=== PATIENT | female | born 1950 | race Hispanic/Latino ===

== ENCOUNTER 2017-10-30 12:02 | Inpatient (IN) | payer MEDICARE ==
[2017-10-30] MEDS ORDERED: Sodium Chloride 0.9% 1,000 ML IV ONE (12:59)
[2017-10-30] MEDS ORDERED: Sodium Chloride 0.9% 250 ML IV ONE (13:10)
[2017-10-30 13:18] LABS: BASO # 0.1 K/uL (0.0-0.2); BASO % 0.7 % (0.0-2.0); EOS # 0.1 K/uL (0.0-0.7); EOS % 0.8 % (0.0-4.0); HEMOGLOBIN 11.8 g/dL (11.0-16.0); LYMPH # 1.5 K/uL (1.0-4.3); LYMPH % 12.2 % (20.0-40.0); MEAN CELL VOLUME 89.5 fL (81.0-99.0); MEAN CORPUSCULAR HEMOGLOBIN 29.8 pg (27.0-31.0); MEAN CORPUSCULAR HGB CONC 33.3 g/dL (33.0-37.0); MEAN PLATELET VOLUME 8.9 fL (7.2-11.7); MONO # 0.6 K/uL (0.0-0.8); MONO % 5.4 % (0.0-10.0); NEUT # 9.7 K/uL (1.8-7.0); NEUT % 80.9 % (50.0-75.0); RBC 3.97 Mil/uL (3.80-5.20); RED CELL DISTRIBUTION WIDTH 12.8 % (11.5-14.5)
[2017-10-30 13:31] LABS: ALBUMIN 4.1 g/dL (3.5-5.0); CALCIUM 9.1 mg/dl (8.6-10.4)
[2017-10-30] MEDS ORDERED: Iodixanol 320 MG/ML 100 ML BOTTLE IV ONE (13:44)
[2017-10-30 13:47] LABS: SQUAMOUS EPITHIAL 4 /hpf (0-5); URINE BACTERIA RARE (<OCC); URINE BILIRUBIN NEGATIVE (NEGATIVE); URINE BLOOD 3+ (NEGATIVE); URINE COLOR Yellow (YELLOW); URINE GLUCOSE (UA) NORMAL (Normal); URINE PROTEIN NEGATIVE (NEGATIVE); URINE UROBILINOGEN NORMAL mg/dL (0.2-1.0)
[2017-10-30 14:04] LABS: URINE LEUKOCYTE ESTERASE TRACE Leu/uL (Negative)
[2017-10-30 14:05] LABS: URINE CLARITY SLHAZY (Clear)
--- NOTE | 2017-10-30 15:15 | CT ---
PROCEDURE: CT Abdomen and Pelvis without intravenous contrast HISTORY: right-sided abdominal pain COMPARISON: None. TECHNIQUE: Helical CT of the abdomen and pelvis was performed without oral or intravenous contrast as per referring physician request. Contrast Dose: None Radiation dose: Total exam DLP = 1210.41 mGy-cm. This CT exam was performed using one or more of the following dose reduction techniques: Automated exposure control, adjustment of the mA and/or kV according to patient size, and/or use of iterative reconstruction technique. FINDINGS: LOWER THORAX: Unremarkable. LIVER: Unremarkable. No gross lesion or ductal dilatation. 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 Sludge is likely within the gallbladder lumen. Chronic cholecystitis is not excluded. Clinically correlate further. PANCREAS: Unremarkable. No gross lesion or ductal dilatation. SPLEEN: Unremarkable. ADRENALS: Unremarkable. No mass. KIDNEYS AND URETERS: A 5.7 mm calculus obstructing distal right ureter causing [id number] right hydroureteronephrosis. No additional radiodense urolithiasis identified at the right side although an intrarenal calculus identified measuring 6 mm at the lower pole left kidney without obstructive uropathy. Urinary bladder is mildly distended. VASCULATURE: Unremarkable. No aortic aneurysm. BOWEL: Unremarkable. No obstruction. No gross mural thickening. APPENDIX: Unremarkable. Normal appendix. PERITONEUM: Unremarkable. No free fluid. No free air. LYMPH NODES: Unremarkable. No enlarged lymph nodes. BLADDER: Unremarkable. REPRODUCTIVE: Unremarkable. BONES: No acute fracture. OTHER FINDINGS: Inferior left rectus abdominus muscle lipoma identified, 11.8 cm. 4.1 cm subcutaneous medial right buttocks mass partially calcified suggests of a sebaceous cyst. IMPRESSION: 1. 5.7 mm calculus obstructs the distal right ureter several cm proximal right uterus with junction causing [id number] right hydroureteronephrosis. Intrarenal calculus lower pole left kidney, nonobstructive. 2. Gross abnormal gallbladder including marked mural thickening with the wall partially calcified and sludge in the lumen. This is likely developing partial in gallbladder. Chronic cholecystitis is not excluded nor is underlying neoplasm. Clinical follow-up advised.
--- NOTE | 2017-10-30 15:58 | C.PDOC ---
History Of Present Illness 67 y/o female presents to ED with complaints of urinary frequency and right sided abdominal pain "for couple of days". Patient admits to decreased po intake and denies fever, chills, hematuria, back pain, dysuria or any other complaints at this time. Chief Complaint (Nursing): Abdominal Pain History Per: Patient History/Exam Limitations: no limitations Onset/Duration Of Symptoms: Days Current Symptoms Are (Timing): Still Present Past Medical History Reviewed: Historical Data, Nursing Documentation, Vital Signs Vital Signs: Last Vital Signs Temp 98 F 10/30/17 16:46 Pulse 82 10/30/17 16:46 Resp 18 10/30/17 16:46 BP 184/77 H 10/30/17 16:46 Pulse Ox 99 10/30/17 16:46 - Medical History PMH: Diabetes, HTN Surgical History: No Surg Hx Family History: States: No Known Family Hx - Social History Hx Tobacco Use: No Hx Alcohol Use: No Hx Substance Use: No - Immunization History Hx Tetanus Toxoid Vaccination: No Hx Influenza Vaccination: Yes Hx Pneumococcal Vaccination: No Review Of Systems Constitutional: Negative for: Fever, Chills Gastrointestinal: Positive for: Abdominal Pain. Negative for: Nausea, Vomiting Genitourinary: Positive for: Frequency. Negative for: Dysuria, Hematuria, Vaginal Discharge Skin: Negative for: Rash Physical Exam - Physical Exam Appears: Non-toxic, No Acute Distress Skin: Warm, Dry, No Rash Head: Atraumatic, Normacephalic Oral Mucosa: Dry Neck: Normal ROM, Supple Cardiovascular: Rhythm Regular Respiratory: Normal Breath Sounds, No Rales, No Rhonchi, No Wheezing Gastrointestinal/Abdominal: Soft, Tenderness (Right side Upper >Lower), No Guarding, No Rebound, Other (No flank pain) Back: No CVA Tenderness Extremity: Normal ROM, Capillary Refill (<2 seconds) Neurological/Psych: Oriented x3, Normal Speech, Normal Cognition ED Course And Treatment - Laboratory Results Result Diagrams: 10/30/17 13:08 10/30/17 13:08 O2 Sat by Pulse Oximetry: 95 (RA) Pulse Ox Interpretation: Normal Disposition - Disposition Disposition Time: 16:10 Condition: STABLE - Clinical Impression Clinical Impression: Abdominal pain, Kidney stone, Gallbladder stone with nonacute cholecystitis, Acute renal failure - Scribe Statement The provider has reviewed the documentation as recorded by the Scribfara Raygoza
[2017-10-30] MEDS ORDERED: Ciprofloxacin 400mg/200ml D5W 400 MG/200 ML BAG IVPB STA (16:43)
[2017-10-30] MEDS ORDERED: Morphine 4 MG/ML VIAL IV STA (16:43)
[2017-10-30] MEDS ORDERED: metroNIDAZOLE IV 500 mg/100 ml 500 MG/100 ML BAG IVPB STA (16:43)
--- NOTE | 2017-10-30 17:00 | US ---
HISTORY: RUQ tenderness COMPARISON: None. TECHNIQUE: Sonographic evaluation of the right upper quadrant of the abdomen. FINDINGS: LIVER: Measures 22.0 cm in length. Increased echogenicity of the liver parenchyma suggests hepatic steatosis diffusely without focal mass evident grossly. No intrahepatic bile duct dilatation. GALLBLADDER: Extensive cholelithiasis identified layering in the dependent gallbladder with sludge. The wall appears thickened to approximately 6.8 mm and although there is no pericholecystic fluid collection related, acute or subacute cholecystitis is in question a further clinical correlation is advised. Further, there is a positive sonographic Portillo sign. COMMON BILE DUCT: Measures 9.7 mm. No choledocholithiasis. PANCREAS: The tail of the pancreas is obscured by overlying bowel gas with remainder unremarkable. RIGHT KIDNEY: Measures 14.3 cm in length. Normal echogenicity. No calculus, mass, or hydronephrosis. AORTA: No aneurysmal dilatation. IVC: Unremarkable. OTHER FINDINGS: None . IMPRESSION: Abnormal gallbladder findings including cholelithiasis and mural thickening as well as sonographic Portillo sign are highly suspicious for acute cholecystitis. Clinically correlate. CBD caliber of 9.7 mm also significantly abnormal but without definite choledocholithiasis is evident. Clinically correlate further. Consider follow-up MRCP exam. Hepatic steatosis. Partial imaging of the pancreas.
[2017-10-30] MEDS ORDERED: Morphine 4 MG/ML VIAL ONE (17:12)
[2017-10-30] MEDS ORDERED: Ciprofloxacin 400mg/200ml D5W 400 MG/200 ML BAG IVPB ONE (17:13)
[2017-10-30] MEDS ORDERED: metroNIDAZOLE IV 500 mg/100 ml 500 MG/100 ML BAG ONE (17:14)
[2017-10-30] MEDS ORDERED: Sodium Chloride 0.45% 1,000 ML IV ONE (17:21)
--- NOTE | 2017-10-30 17:23 | CP.PCM.HP ---
History of Present Illness - History of Present Illness History of Present Illness: c/o abd pain for 4 days duration HPI: 4 days ago c/o diff in urination and buring and pain. Called crayon sawyer and she started on cipro 500mg daily for 5 doses. But she got more pain in the abdomen and poor appetite and not feeling well. with worsening pain she came to ED. In the ED eval done and showing gall bladder stone and positive lindsey sign. also has renal stone with hydro. Present on Admission - Present on Admission Any Indicators Present on Admission: No History of DVT/PE: No History of Uncontrolled Diabetes: No Urinary Catheter: No Decubitus Ulcer Present: No Review of Systems - Review of Systems Systems not reviewed;Unavailable: Acuity of Condition - Constitutional Constitutional: As Per HPI - EENT Eyes: As Per HPI Nose/Mouth/Throat: As Per HPI - Respiratory Respiratory: As Per HPI - Gastrointestinal Gastrointestinal: Dyspepsia, Nausea Additional comments: abdominal pain Past Patient History - Infectious Disease Hx of Infectious Diseases: None - Past Social History Smoking Status: Never Smoked - CARDIAC Hx Hypertension: Yes - ENDOCRINE/METABOLIC Hx Diabetes Mellitus Type 2: Yes - GENITOURINARY/GYNECOLOGICAL Other/Comment: Hx of gallstones - PSYCHIATRIC Hx Substance Use: No - SURGICAL HISTORY Hx Surgeries: No - ANESTHESIA Hx Anesthesia: No Meds Allergies/Adverse Reactions: Allergies Allergy/AdvReac Type Severity Reaction Status Date / Time Penicillins Allergy Severe RASH Verified 10/30/17 12:09 Physical Exam - Constitutional Appears: Well - Head Exam Head Exam: ATRAUMATIC - ENT Exam ENT Exam: Mucous Membranes Dry - Respiratory Exam Respiratory Exam: NORMAL BREATHING PATTERN - Cardiovascular Exam Cardiovascular Exam: REGULAR RHYTHM - GI/Abdominal Exam GI & Abdominal Exam: Normal Bowel Sounds, Tenderness Additional comments: rt UQ pain and tenderness noted - Extremities Exam Extremities exam: Positive for: normal inspection - Back Exam Back exam: NORMAL INSPECTION - Neurological Exam Neurological exam: Normal Gait Results - Vital Signs Recent Vital Signs: Last Vital Signs Temp 98 F 10/30/17 16:46 Pulse 82 10/30/17 16:46 Resp 18 10/30/17 16:46 BP 184/77 H 10/30/17 16:46 Pulse Ox 99 10/30/17 16:46 - Labs Result Diagrams: 10/31/17 07:01 10/30/17 13:08 Labs: Laboratory Results - last 24 hr 10/30/17 10/30/17 10/30/17 13:08 13:08 13:08 WBC 12.0 H RBC 3.97 Hgb 11.8 Hct 35.6 MCV 89.5 MCH 29.8 MCHC 33.3 RDW 12.8 Plt Count 318 MPV 8.9 Neut % (Auto) 80.9 H Lymph % (Auto) 12.2 L [place] % (Auto) 5.4 Eos % (Auto) 0.8 Baso % (Auto) 0.7 Neut # (Auto) 9.7 H Lymph # (Auto) 1.5 [place] # (Auto) 0.6 Eos # (Auto) 0.1 Baso # (Auto) 0.1 Sodium 139 Potassium 4.6 Chloride 98 Carbon Dioxide 23 Anion Gap 22 H BUN 31 H Creatinine 2.1 H Est GFR ( Amer) 28 Est GFR (Non-Af Amer) 23 Random Glucose 183 H Calcium 9.1 Total Bilirubin 1.2 AST 27 ALT 27 Alkaline Phosphatase 104 Total Protein 8.1 Albumin 4.1 Globulin 3.9 Albumin/Globulin Ratio 1.0 Lipase 50 Urine Color Yellow Urine Clarity [place] Urine pH 5.0 Ur Specific [place] 1.015 Urine Protein Negative Urine Glucose (UA) Normal Urine Ketones Trace Urine Blood 3+ H Urine Nitrate Negative Urine Bilirubin Negative Urine Urobilinogen Normal Ur Leukocyte Esterase Trace Urine WBC (Auto) 10 H Urine RBC (Auto) 117 H Ur Squamous Epith Cells 4 Urine Bacteria Rare Assessment & Plan (1) Acute cholecystitis Assessment and Plan: acute cholecystitis for surgical consult possible cholecystectomy plan Status: Acute (2) Acute renal failure Status: Acute (3) Kidney stone Assessment and Plan: obstructive renal stone and may need intervention - urology eval Status: Acute
[2017-10-30] MEDS ORDERED: Ciprofloxacin 200mg/100ml D5W 100 ML IVPB SCH (17:30)
--- NOTE | 2017-10-30 18:38 | CP.PCM.CON ---
<Kevin Hermosillo - Last Filed: 10/30/17 18:28> History of Present Illness - History of Present Illness History of Present Illness: PGY5 GI Fellow Consult Note Patient is a 67yo female with PMHx significant for cholelithiasis, HTN, DM and dyslipidemia who presents to the ED with complaint of abdominal pain and dysuria. Dysuria began several days ago with more prominent right flank pain developing yesterday evening while at work. Today, pain progressively worsened and patient had little to no appetite with associated nausea. As pain became unbearable, she called her to bring her to the ED for further evaluation. Initial blood work revealed abnormal BUN/Cr, slight leukocytosis and high-normal total bilirubin. U/S abdomen and CT A/P without contrast showed porcelain gallbladder with cholelithiasis, dilated CBD at 9.7mm as well as 5.7mm right ureteral nephrolithiasis with hydroureternephrosis. Pain has improved only with IVP morphine. She denies any weight loss, vomiting, fever, chills, hematuria. Does admit to diarrhea which has been ongoing for many years. Also admits to episode of choledocolithiasis 8 years ago which resolved without surgical/endoscopic intervention. PMHx: See HPI PSHx: Discussed with patient and denies any prior surgical history FHx: No clinically significant family history Social: Denies tobacco, EtOH or illicit drug use 12 system ROS performed and negative except where stated. Past Patient History - Infectious Disease Hx of Infectious Diseases: None - Past Social History Smoking Status: Never Smoked - CARDIAC Hx Hypertension: Yes - ENDOCRINE/METABOLIC Hx Diabetes Mellitus Type 2: Yes - GENITOURINARY/GYNECOLOGICAL Other/Comment: Hx of gallstones - PSYCHIATRIC Hx Substance Use: No - SURGICAL HISTORY Hx Surgeries: No - ANESTHESIA Hx Anesthesia: No Meds Allergies/Adverse Reactions: Allergies Allergy/AdvReac Type Severity Reaction Status Date / Time Penicillins Allergy Severe RASH Verified 10/30/17 12:09 - Medications Medications: Current Medications Sodium Chloride (Sodium Chloride 0.45%) 1,000 mls @ 100 mls/hr IV .Q10H ONE Stop: 10/31/17 03:20 Last Admin: 10/30/17 17:25 Dose: 100 mls/hr Metronidazole (Flagyl) 250 mg in 50 mls @ 100 mls/hr IVPB Q8H [facility] PRN Reason: Protocol Stop: 11/05/17 01:31 Ciprofloxacin (Cipro 200mg/100ml D5w) 100 mls @ 67 mls/hr IVPB Q12H [facility] PRN Reason: Protocol Losartan Potassium (Cozaar) 25 mg PO DAILY [facility] Morphine Sulfate (Morphine) 2 mg IVP Q4 PRN PRN Reason: Pain, severe (8-10) Pantoprazole Sodium (Protonix Inj) 40 mg IVP DAILY [facility] Physical Exam - Constitutional Appears: Non-toxic, No Acute Distress - Eye Exam Eye Exam: EOMI, PERRL - ENT Exam ENT Exam: Mucous Membranes Moist - Respiratory Exam Respiratory Exam: Clear to Auscultation Bilateral. absent: Rales, Rhonchi, Wheezes - Cardiovascular Exam Cardiovascular Exam: RRR, +S1, +S2 - GI/Abdominal Exam GI & Abdominal Exam: Normal Bowel Sounds, Soft, Tenderness (RUQ with right flank tenderness as well; +Portillo sign). absent: Distended, Firm, Guarding, Organomegaly, Rigid - Extremities Exam Extremities exam: Positive for: normal inspection. Negative for: pedal edema - Neurological Exam Neurological exam: Alert, Oriented x3 - Psychiatric Exam Psychiatric exam: Normal Affect, Normal Mood - Skin Skin Exam: Dry, Warm Results - Vital Signs Recent Vital Signs: Last Vital Signs Temp 98 F 10/30/17 16:46 Pulse 82 10/30/17 16:46 Resp 18 10/30/17 16:46 BP 184/77 H 10/30/17 16:46 Pulse Ox 95 10/30/17 18:27 - Labs Result Diagrams: 10/30/17 13:08 10/30/17 13:08 Labs: Laboratory Results - last 24 hr 10/30/17 10/30/17 10/30/17 13:08 13:08 13:08 WBC 12.0 H RBC 3.97 Hgb 11.8 Hct 35.6 MCV 89.5 MCH 29.8 MCHC 33.3 RDW 12.8 Plt Count 318 MPV 8.9 Neut % (Auto) 80.9 H Lymph % (Auto) 12.2 L [place] % (Auto) 5.4 Eos % (Auto) 0.8 Baso % (Auto) 0.7 Neut # (Auto) 9.7 H Lymph # (Auto) 1.5 [place] # (Auto) 0.6 Eos # (Auto) 0.1 Baso # (Auto) 0.1 Sodium 139 Potassium 4.6 Chloride 98 Carbon Dioxide 23 Anion Gap 22 H BUN 31 H Creatinine 2.1 H Est GFR ( Amer) 28 Est GFR (Non-Af Amer) 23 Random Glucose 183 H Calcium 9.1 Total Bilirubin 1.2 AST 27 ALT 27 Alkaline Phosphatase 104 Total Protein 8.1 Albumin 4.1 Globulin 3.9 Albumin/Globulin Ratio 1.0 Lipase 50 Urine Color Yellow Urine Clarity [place] Urine pH 5.0 Ur Specific [place] 1.015 Urine Protein Negative Urine Glucose (UA) Normal Urine Ketones Trace Urine Blood 3+ H Urine Nitrate Negative Urine Bilirubin Negative Urine Urobilinogen Normal Ur Leukocyte Esterase Trace Urine WBC (Auto) 10 H Urine RBC (Auto) 117 H Ur Squamous Epith Cells 4 Urine Bacteria Rare Assessment & Plan - Assessment and Plan (Free Text) Assessment: Patient is a 67yo female with PMHx significant for cholelithiasis, HTN and DM who presents to the ED with complaint of abdominal pain and dysuria. Dysuria began several days ago with more prominent right flank pain developing yesterday evening while at work -Acute cholecystitis -Dilated CBD on imaging - R/O choledocolithiasis -Porcelain gallbladder -Cholelithiasis -Obstructive nephrolithiasis with obstructive uropathy and RAMY Plan: -Recommend MRCP to better evaluate CBD and R/O choledocolithiasis -If MRCP showing choeldocolithiasis - would likely benefit from ERCP -Would request surgical evaluation for porcelain gb and cholelithiasis/ cholecystitis -Agree with empiric antibiotic coverage -IVF for nephrolithiasis/RAMY -Plan per findings, maintain NPO for now pending findings - Date & Time Date: 10/30/17 Time: 18:00 <Murtaza Mcpherson - Last Filed: 10/30/17 19:00> Meds - Medications Medications: Current Medications Sodium Chloride (Sodium Chloride 0.45%) 1,000 mls @ 100 mls/hr IV .Q10H ONE Stop: 10/31/17 03:20 Last Admin: 10/30/17 17:25 Dose: 100 mls/hr Metronidazole (Flagyl) 250 mg in 50 mls @ 100 mls/hr IVPB Q8H [facility] PRN Reason: Protocol Stop: 11/05/17 01:31 Ciprofloxacin (Cipro 200mg/100ml D5w) 100 mls @ 67 mls/hr IVPB Q12H [facility] PRN Reason: Protocol Losartan Potassium (Cozaar) 25 mg PO DAILY [facility] Morphine Sulfate (Morphine) 2 mg IVP Q4 PRN PRN Reason: Pain, severe (8-10) Pantoprazole Sodium (Protonix Inj) 40 mg IVP DAILY [facility] Results - Vital Signs Recent Vital Signs: Last Vital Signs Temp 98 F 10/30/17 16:46 Pulse 82 10/30/17 16:46 Resp 18 10/30/17 16:46 BP 184/77 H 10/30/17 16:46 Pulse Ox 95 10/30/17 18:27 - Labs Result Diagrams: 10/30/17 13:08 10/30/17 13:08 Labs: Laboratory Results - last 24 hr 10/30/17 10/30/17 10/30/17 13:08 13:08 13:08 WBC 12.0 H RBC 3.97 Hgb 11.8 Hct 35.6 MCV 89.5 MCH 29.8 MCHC 33.3 RDW 12.8 Plt Count 318 MPV 8.9 Neut % (Auto) 80.9 H Lymph % (Auto) 12.2 L [place] % (Auto) 5.4 Eos % (Auto) 0.8 Baso % (Auto) 0.7 Neut # (Auto) 9.7 H Lymph # (Auto) 1.5 [place] # (Auto) 0.6 Eos # (Auto) 0.1 Baso # (Auto) 0.1 Sodium 139 Potassium 4.6 Chloride 98 Carbon Dioxide 23 Anion Gap 22 H BUN 31 H Creatinine 2.1 H Est GFR ( Amer) 28 Est GFR (Non-Af Amer) 23 Random Glucose 183 H Calcium 9.1 Total Bilirubin 1.2 AST 27 ALT 27 Alkaline Phosphatase 104 Total Protein 8.1 Albumin 4.1 Globulin 3.9 Albumin/Globulin Ratio 1.0 Lipase 50 Urine Color Yellow Urine Clarity [place] Urine pH 5.0 Ur Specific [place] 1.015 Urine Protein Negative Urine Glucose (UA) Normal Urine Ketones Trace Urine Blood 3+ H Urine Nitrate Negative Urine Bilirubin Negative Urine Urobilinogen Normal Ur Leukocyte Esterase Trace Urine WBC (Auto) 10 H Urine RBC (Auto) 117 H Ur Squamous Epith Cells 4 Urine Bacteria Rare Attending/Attestation - Attestation I have personally seen and examined this patient.: Yes I have fully participated in the care of the patient.: Yes I have reviewed all pertinent clinical information: Yes Notes (Text): 10/30/17 18:45 I have seen and examined patient with GI fellow. Agree with above documentation with the following additions. In brief, this is a 67 year old female with history of DM, HTN, hyperlipidemia, cholelithiasis who presents to hospital with complaint of progressive abdominal pain and dysuria over the past 3 days. She describes worsening right sided abdominal pain, 7/10 intensity, associated with nausea and loss of appetite during this time period. She endorses chronic intermittent diarrhea over the past several years. She reports one similar prior episode of abdominal pain with supposed choledocholithiasis nearly 8 years ago which resolved without endoscopic intervention. Unclear regarding prior endoscopic history. Review of vitals from today shows elevated BP. DM / HTN Hyperlipidemia Cholelithiasis Abdominal pain - acute cholecystitis Obstructive urolithiasis - NPO - Continue with IV antibiotic therapy - Continue with IVF hydration therapy, monitor creatinine. Suggest urology consultation given obstructive uropathy. - CT and abdominal US imaging reviewed by me showing marked thickening of GB wall with dilated CBD - Obtain MRCP imaging to rule out choledocholithiasis - Follow up surgical recommendations - Will continue to monitor patient clinical course
--- NOTE | 2017-10-30 19:01 | CP.PCM.CON ---
<Urmila Reyez - Last Filed: 10/30/17 23:12> History of Present Illness - History of Present Illness History of Present Illness: General Surgery consult note for Dr. Araujo Consulted for: acute cholecystitis Patient is a 67F with PMH of diabetes and no PSH who presented to the ED with urinary frequency and right abdominal pain for a couple of days. Originally pain was associated with urination but improved on day 2 after patient took a percocet. But today patient woke up with worse abdominal pain specific to the RUQ, radiating to her back, associated with decreased appetite. Patient denies any nausea, vomiting, fevers, chills. Patient reports chronic diarrhea associated with ingestion of fatty foods. Patient states that she has a past history of gallstones identified on ultrasound 10 years ago as work up for indigestion. Patient refused surgical intervention at that time. PMH: HTN, DM PSH: denies ALL: PCN Social: denies any substance use Review of Systems - Review of Systems All systems: reviewed and no additional remarkable complaints except (as per HPI ) Past Patient History - Infectious Disease Hx of Infectious Diseases: None - Past Medical History & Family History Past Medical History?: Yes Past Family History: Reviewed and not pertinent - Past Social History Smoking Status: Never Smoked Alcohol: None Drugs: Denies - CARDIAC Hx Hypertension: Yes - RENAL Hx Kidney Stones: Yes - ENDOCRINE/METABOLIC Hx Diabetes Mellitus Type 2: Yes - GASTROINTESTINAL Hx Gall Bladder Disease: Yes - PSYCHIATRIC Hx Substance Use: No - SURGICAL HISTORY Hx Surgeries: No - ANESTHESIA Hx Anesthesia: No Meds Allergies/Adverse Reactions: Allergies Allergy/AdvReac Type Severity Reaction Status Date / Time Penicillins Allergy Severe RASH Verified 10/30/17 12:09 - Medications Medications: Current Medications Sodium Chloride (Sodium Chloride 0.45%) 1,000 mls @ 100 mls/hr IV .Q10H ONE Stop: 10/31/17 03:20 Last Admin: 10/30/17 17:25 Dose: 100 mls/hr Metronidazole (Flagyl) 250 mg in 50 mls @ 100 mls/hr IVPB Q8H [facility] PRN Reason: Protocol Stop: 11/05/17 01:31 Ciprofloxacin (Cipro 200mg/100ml D5w) 100 mls @ 67 mls/hr IVPB Q12H [facility] PRN Reason: Protocol Losartan Potassium (Cozaar) 25 mg PO DAILY [facility] Morphine Sulfate (Morphine) 2 mg IVP Q4 PRN PRN Reason: Pain, severe (8-10) Pantoprazole Sodium (Protonix Inj) 40 mg IVP DAILY [facility] Physical Exam - Constitutional Appears: Well, Non-toxic, No Acute Distress - Head Exam Head Exam: ATRAUMATIC, NORMOCEPHALIC - Eye Exam Eye Exam: Normal appearance. absent: Conjunctival injection, Scleral icterus - ENT Exam ENT Exam: Mucous Membranes Moist, Normal Oropharynx - Respiratory Exam Respiratory Exam: NORMAL BREATHING PATTERN. absent: Accessory Muscle Use, Respiratory Distress - Cardiovascular Exam Cardiovascular Exam: RRR - GI/Abdominal Exam GI & Abdominal Exam: Soft, Tenderness (RUQ). absent: Distended, Guarding, Rebound - Extremities Exam Extremities exam: Positive for: pedal pulses present. Negative for: calf tenderness, pedal edema - Back Exam Back exam: absent: CVA tenderness (L), CVA tenderness (R) - Neurological Exam Neurological exam: Alert, Oriented x3 - Psychiatric Exam Psychiatric exam: Normal Affect, Normal Mood - Skin Skin Exam: Dry, Intact, Normal Color, Warm Results - Vital Signs Recent Vital Signs: Last Vital Signs Temp 98 F 10/30/17 16:46 Pulse 82 10/30/17 16:46 Resp 18 10/30/17 16:46 BP 184/77 H 10/30/17 16:46 Pulse Ox 95 10/30/17 18:27 - Labs Result Diagrams: 10/30/17 13:08 10/30/17 13:08 Labs: Laboratory Results - last 24 hr 10/30/17 10/30/17 10/30/17 13:08 13:08 13:08 WBC 12.0 H RBC 3.97 Hgb 11.8 Hct 35.6 MCV 89.5 MCH 29.8 MCHC 33.3 RDW 12.8 Plt Count 318 MPV 8.9 Neut % (Auto) 80.9 H Lymph % (Auto) 12.2 L [place] % (Auto) 5.4 Eos % (Auto) 0.8 Baso % (Auto) 0.7 Neut # (Auto) 9.7 H Lymph # (Auto) 1.5 [place] # (Auto) 0.6 Eos # (Auto) 0.1 Baso # (Auto) 0.1 Sodium 139 Potassium 4.6 Chloride 98 Carbon Dioxide 23 Anion Gap 22 H BUN 31 H Creatinine 2.1 H Est GFR ( Amer) 28 Est GFR (Non-Af Amer) 23 Random Glucose 183 H Calcium 9.1 Total Bilirubin 1.2 AST 27 ALT 27 Alkaline Phosphatase 104 Total Protein 8.1 Albumin 4.1 Globulin 3.9 Albumin/Globulin Ratio 1.0 Lipase 50 Urine Color Yellow Urine Clarity [place] Urine pH 5.0 Ur Specific [place] 1.015 Urine Protein Negative Urine Glucose (UA) Normal Urine Ketones Trace Urine Blood 3+ H Urine Nitrate Negative Urine Bilirubin Negative Urine Urobilinogen Normal Ur Leukocyte Esterase Trace Urine WBC (Auto) 10 H Urine RBC (Auto) 117 H Ur Squamous Epith Cells 4 Urine Bacteria Rare Assessment & Plan - Assessment and Plan (Free Text) Assessment: 67F with acute cholecystitis and nephrolithiasis ABD US: gallstones, thick gallbladder wall, CBD 9.7mm CT abd: gallbladder wall calcifications. right ureter calculus with hydroureteronephrosis MRCP: dilated CBD, no sign of choledocholithiasis Plan: -OR tomorrow AM for robotic cholecystectomy -NPO past midnight -repeat CBC/CMP in the AM -PRN pain and nausea medication -IVF -Antibiotics -F/U GI and urology recs--appreciated--may attempt to coordinate with Dr. Ignacio for ureter stents Discussed with Dr. Van Reyez, PGY2 <Robbi Araujo B - Last Filed: 10/31/17 17:45> Meds - Medications Medications: Current Medications Lactated Ringer's (Lactated Ringer's) 1,000 mls @ 125 mls/hr IV .Q8H [facility] Last Admin: 10/31/17 05:54 Dose: 125 mls/hr Acetaminophen (Ofirmev) 100 mls @ 400 mls/hr IV Q6 PRN PRN Reason: Pain, Mild (1-3) Stop: 11/01/17 14:35 Last Admin: 10/31/17 15:00 Dose: 100 mls Ciprofloxacin (Cipro 200mg/100ml D5w) 100 mls @ 67 mls/hr IVPB Q12H [facility] PRN Reason: Protocol Metronidazole (Flagyl) 250 mg in 50 mls @ 100 mls/hr IVPB Q8H [facility] PRN Reason: Protocol Stop: 11/05/17 19:01 Losartan Potassium (Cozaar) 25 mg PO DAILY [facility] Last Admin: 10/31/17 09:36 Dose: Not Given Morphine Sulfate (Morphine) 4 mg IVP Q4 PRN PRN Reason: Pain, severe (8-10) Ondansetron HCl (Zofran Inj) 4 mg IVP Q6H PRN PRN Reason: Nausea/Vomiting Pantoprazole Sodium (Protonix Inj) 40 mg IVP DAILY [facility] Results - Vital Signs Recent Vital Signs: Last Vital Signs Temp 98.3 F 10/31/17 16:44 Pulse 98 H 10/31/17 16:44 Resp 18 10/31/17 16:44 BP 155/74 H 10/31/17 16:44 Pulse Ox 97 10/31/17 16:44 - Labs Result Diagrams: 10/31/17 07:01 10/31/17 07:01 Labs: Laboratory Results - last 24 hr 10/30/17 10/31/17 10/31/17 21:11 06:11 07:01 WBC RBC Hgb Hct MCV MCH MCHC RDW Plt Count MPV Neut % (Auto) Lymph % (Auto) [place] % (Auto) Eos % (Auto) Baso % (Auto) Neut # (Auto) Lymph # (Auto) [place] # (Auto) Eos # (Auto) Baso # (Auto) Neutrophils % (Manual) Lymphocytes % (Manual) Monocytes % (Manual) Eosinophils % (Manual) Basophils % (Manual) Platelet Estimate Hypochromasia (manual) Poikilocytosis (manual Anisocytosis (manual) PT 12.9 H INR 1.2 APTT 43 H Sodium Potassium Chloride Carbon Dioxide Anion Gap BUN Creatinine Est GFR ( Amer) Est GFR (Non-Af Amer) POC Glucose (mg/dL) 96 155 H Random Glucose Calcium Total Bilirubin AST ALT Alkaline Phosphatase Total Protein Albumin Globulin Albumin/Globulin Ratio Blood Type Antibody Screen 10/31/17 10/31/17 10/31/17 07:01 07:01 07:01 WBC 11.0 H RBC 3.59 L Hgb 10.8 L Hct 31.8 L MCV 88.5 MCH 30.2 MCHC 34.1 RDW 12.8 Plt Count 286 MPV 8.5 Neut % (Auto) 84.6 H Lymph % (Auto) 8.5 L [place] % (Auto) 5.9 Eos % (Auto) 0.5 Baso % (Auto) 0.5 Neut # (Auto) 9.3 H Lymph # (Auto) 0.9 L [place] # (Auto) 0.6 Eos # (Auto) 0.1 Baso # (Auto) 0.1 Neutrophils % (Manual) 80 H Lymphocytes % (Manual) 12 L Monocytes % (Manual) 6 Eosinophils % (Manual) 1 Basophils % (Manual) 1 Platelet Estimate Normal Hypochromasia (manual) Slight Poikilocytosis (manual Slight Anisocytosis (manual) Slight PT INR APTT Sodium 140 Potassium 4.6 Chloride 102 Carbon Dioxide 24 Anion Gap 19 BUN 26 H Creatinine 1.8 H Est GFR ( Amer) 34 Est GFR (Non-Af Amer) 28 POC Glucose (mg/dL) Random Glucose 163 H Calcium 8.6 Total Bilirubin 1.1 AST 20 ALT 23 Alkaline Phosphatase 88 Total Protein 7.2 Albumin 3.6 Globulin 3.6 Albumin/Globulin Ratio 1.0 Blood Type O POSITIVE Antibody Screen Negative 10/31/17 16:32 WBC RBC Hgb Hct MCV MCH MCHC RDW Plt Count MPV Neut % (Auto) Lymph % (Auto) [place] % (Auto) Eos % (Auto) Baso % (Auto) Neut # (Auto) Lymph # (Auto) [place] # (Auto) Eos # (Auto) Baso # (Auto) Neutrophils % (Manual) Lymphocytes % (Manual) Monocytes % (Manual) Eosinophils % (Manual) Basophils % (Manual) Platelet Estimate Hypochromasia (manual) Poikilocytosis (manual Anisocytosis (manual) PT INR APTT Sodium Potassium Chloride Carbon Dioxide Anion Gap BUN Creatinine Est GFR ( Amer) Est GFR (Non-Af Amer) POC Glucose (mg/dL) 212 H Random Glucose Calcium Total Bilirubin AST ALT Alkaline Phosphatase Total Protein Albumin Globulin Albumin/Globulin Ratio Blood Type Antibody Screen Attending/Attestation - Attestation I have personally seen and examined this patient.: Yes I have fully participated in the care of the patient.: Yes I have reviewed all pertinent clinical information: Yes Notes (Text): Pt was seen and examined at bedside Agree with above note and assessment Pt with acute on chronic cholecystitis with Cholelithiasis and Right ureteric stone Labs and radiology reviewed Ass: Acute on chronic cholecystitis with cholelithiasis with right ureteric stone Plan : OR for Robotic Cholecystectomy possible Open Consent NPO, IVF IV antibiotics Urology consult c.w current mx Plan d.w pt in detail Risk and benefit explained in detail.
[2017-10-30] MEDS ORDERED: Lactated Ringer's 1,000 ML IV SCH (19:15)
--- NOTE | 2017-10-30 19:17 | MRI ---
EXAM: MR Abdomen Without Intravenous Contrast EXAM DATE/TIME: Exam ordered 10/30/2017 5:35 PM CLINICAL HISTORY: 67 years old, female; Pain; Abdominal pain; Tenderness; Right upper quadrant (ruq); Additional info: Choleycystitis TECHNIQUE: Multiplanar magnetic resonance images of the abdomen without intravenous contrast. COMPARISON: No relevant prior studies available. FINDINGS: Lung bases: Unremarkable. No mass. No consolidation. Liver: This diffuse loss of signal within the liver on the out of phase gradient echo sequence reflecting fatty infiltration of the liver. Gallbladder and bile ducts: A fluid fluid level is noted within the gallbladder suggesting sludge. A 2 rounded areas of signal void are noted within the gallbladder each measuring approximately 1.8 cm. Appearance is consistent with gallstones. In the fundus of the gallbladder anteriorly, there are several tiny rounded T2 hyperintense foci.There is diffuse gallbladder wall thickening. On the MRCP portion of the examination the common bile duct measures 1 cm. Pancreas: Unremarkable. No ductal dilation. Spleen: Unremarkable. No splenomegaly. Adrenals: Unremarkable. No mass. Kidneys and ureters: There is mild right-sided hydronephrosis. There are 3 less than 5 mm T2 hyperintense lesions is seen in the left kidney. There is a 1.3 cm T2 hyperintense subcapsular lesion in the upper pole of the right kidney. Stomach and bowel: Unremarkable. No obstruction. Intraperitoneal space: Unremarkable. No significant fluid collection. Bones/joints: There is an apparent levoscoliosis of the thoracolumbar spine. Soft tissues: Unremarkable. Vasculature: Unremarkable. No abdominal aortic aneurysm. Lymph nodes: Unremarkable. No enlarged lymph nodes. IMPRESSION: 1. Diffuse gallbladder wall thickening with gallstones, sludge and adenomyomatosis. No findings to suggest gallbladder carcinoma invading the liver 2. Mild dilatation of the common bile duct. No evidence of choledocholithiasis. No pancreatic ductal dilatation. 3. Hepatic steatosis. 4 . Bilateral renal cysts. 5. Mild hydronephrosis of the right kidney Images were attached to this report and are available at [email or web address]
[2017-10-31] MEDS: metroNIDAZOLE IV 250mg/50 ml 250 MG/50 ML BAG IVPB SCH ×3 (00:43→19:41)
[2017-10-31] MEDS: Morphine 4 MG/ML VIAL IVP PRN ×2 (01:04→04:57)
[2017-10-31] MEDS: Lactated Ringer's 1,000 ML IV SCH ×2 (05:54→21:28)
[2017-10-31] MEDS ORDERED: Ciprofloxacin 200mg/100ml D5W 100 ML IVPB SCH (06:00)
[2017-10-31 07:09] LABS: BASO # 0.1 K/uL (0.0-0.2); BASO % 0.5 % (0.0-2.0); EOS # 0.1 K/uL (0.0-0.7); EOS % 0.5 % (0.0-4.0); HEMOGLOBIN 10.8 g/dL (11.0-16.0); LYMPH # 0.9 K/uL (1.0-4.3); LYMPH % 8.5 % (20.0-40.0); MEAN CELL VOLUME 88.5 fL (81.0-99.0); MEAN CORPUSCULAR HEMOGLOBIN 30.2 pg (27.0-31.0); MEAN CORPUSCULAR HGB CONC 34.1 g/dL (33.0-37.0); MEAN PLATELET VOLUME 8.5 fL (7.2-11.7); MONO # 0.6 K/uL (0.0-0.8); MONO % 5.9 % (0.0-10.0); NEUT # 9.3 K/uL (1.8-7.0); NEUT % 84.6 % (50.0-75.0); PLATELET COUNT 286 K/uL (130-400); RBC 3.59 Mil/uL (3.80-5.20); RED CELL DISTRIBUTION WIDTH 12.8 % (11.5-14.5)
[2017-10-31 07:17] LABS: INR 1.2; PROTHROMBIN TIME 12.9 SECONDS (9.7-12.2)
[2017-10-31] MEDS ORDERED: cefTRIAXone IV 1 gm in Dextros 0 ML IVPB ONE (07:37)
[2017-10-31 08:06] LABS: ALBUMIN 3.6 g/dL (3.5-5.0); CALCIUM 8.6 mg/dl (8.6-10.4)
[2017-10-31] MEDS ORDERED: Bupivacaine HCl 0.25% PF (30 ml) Inj ONE (08:21)
[2017-10-31] MEDS ORDERED: ceFAZolin 1 gm in NS 0 GM/0 ML BAG IVPB ONE (08:21)
[2017-10-31] MEDS ORDERED: Lidocaine/Epinephrine 1% 1:100000 10 ML IJ ONE ×2 (08:22→08:31)
[2017-10-31] MEDS ORDERED: Iohexol 240 200 ML ONE (08:26)
[2017-10-31] MEDS ORDERED: Lactated Ringer's 1,000 ML IV ONE ×3 (08:30→15:30)
[2017-10-31] MEDS ORDERED: Midazolam 2 MG/2 ML VIAL ONE (08:44)
[2017-10-31] MEDS ORDERED: Propofol 10 mg/ml Inj (20 ML) ONE (08:44)
[2017-10-31] MEDS ORDERED: Ciprofloxacin 400mg/200ml D5W 0 MG/0 ML BAG IVPB ONE (08:55)
[2017-10-31] MEDS ORDERED: Iohexol 240 (50 ml) ONE (08:56)
[2017-10-31] MEDS ORDERED: Ciprofloxacin 400mg/200ml D5W 400 MG/200 ML BAG IVPB ONE (08:56)
[2017-10-31 09:21] LABS: BASOPHIL 1 % (0-2); EOSINOPHIL 1 % (0-4); LYMPHOCYTE 12 % (20-40); MONOCYTE 6 % (0-10); NEUTROPHIL 80 % (50-75); PLATELET ESTIMATE NORMAL (NORMAL); TOTAL CELLS COUNTED 100
[2017-10-31 09:22] LABS: ANISOCYTOSIS SLIGHT; HYPOCHROMIC SLIGHT; POIKILOCYTOSIS SLIGHT
--- NOTE | 2017-10-31 09:54 | CP.PCM.CON ---
Past Patient History - Infectious Disease Hx of Infectious Diseases: None - Past Medical History & Family History Past Medical History?: Yes Past Family History: Reviewed and not pertinent - Past Social History Smoking Status: Never Smoked - CARDIAC Hx Hypertension: Yes - PULMONARY Hx Respiratory Disorders: No - NEUROLOGICAL Hx Neurological Disorder: No - HEENT Hx HEENT Problems: No - RENAL Hx Kidney Stones: Yes - ENDOCRINE/METABOLIC Hx Diabetes Mellitus Type 2: Yes - HEMATOLOGICAL/ONCOLOGICAL Hx Blood Disorders: No - INTEGUMENTARY Hx Dermatological Problems: No - MUSCULOSKELETAL/RHEUMATOLOGICAL Hx Musculoskeletal Disorders: No Hx Falls: Yes (slid on ice) - GASTROINTESTINAL Hx Gall Bladder Disease: Yes - GENITOURINARY/GYNECOLOGICAL Other/Comment: Hx of gallstones - PSYCHIATRIC Hx Substance Use: No - SURGICAL HISTORY Hx Surgeries: No - ANESTHESIA Hx Anesthesia: No Meds Allergies/Adverse Reactions: Allergies Allergy/AdvReac Type Severity Reaction Status Date / Time Penicillins Allergy Severe RASH Verified 10/30/17 12:09 - Medications Medications: Current Medications Metronidazole (Flagyl) 250 mg in 50 mls @ 100 mls/hr IVPB Q8H [facility] PRN Reason: Protocol Stop: 11/05/17 01:31 Last Admin: 10/31/17 09:37 Dose: Not Given Ciprofloxacin (Cipro 200mg/100ml D5w) 100 mls @ 67 mls/hr IVPB Q12H [facility] PRN Reason: Protocol Last Admin: 10/31/17 05:01 Dose: 67 mls/hr Lactated Ringer's (Lactated Ringer's) 1,000 mls @ 125 mls/hr IV .Q8H [facility] Last Admin: 10/31/17 05:54 Dose: 125 mls/hr Losartan Potassium (Cozaar) 25 mg PO DAILY [facility] Last Admin: 10/31/17 09:36 Dose: Not Given Morphine Sulfate (Morphine) 2 mg IVP Q4 PRN PRN Reason: Pain, severe (8-10) Last Admin: 10/31/17 04:57 Dose: 2 mg Pantoprazole Sodium (Protonix Inj) 40 mg IVP DAILY [facility] Results - Vital Signs Recent Vital Signs: Last Vital Signs Temp 98.3 F 10/31/17 07:15 Pulse 89 10/31/17 07:15 Resp 20 10/31/17 07:15 BP 151/72 H 10/31/17 07:15 Pulse Ox 96 10/31/17 07:15 - Labs Result Diagrams: 10/31/17 07:01 10/31/17 07:01 Labs: Laboratory Results - last 24 hr 10/30/17 10/30/17 10/30/17 13:08 13:08 13:08 WBC 12.0 H RBC 3.97 Hgb 11.8 Hct 35.6 MCV 89.5 MCH 29.8 MCHC 33.3 RDW 12.8 Plt Count 318 MPV 8.9 Neut % (Auto) 80.9 H Lymph % (Auto) 12.2 L [place] % (Auto) 5.4 Eos % (Auto) 0.8 Baso % (Auto) 0.7 Neut # (Auto) 9.7 H Lymph # (Auto) 1.5 [place] # (Auto) 0.6 Eos # (Auto) 0.1 Baso # (Auto) 0.1 Neutrophils % (Manual) Lymphocytes % (Manual) Monocytes % (Manual) Eosinophils % (Manual) Basophils % (Manual) Platelet Estimate Hypochromasia (manual) Poikilocytosis (manual Anisocytosis (manual) PT INR APTT Sodium 139 Potassium 4.6 Chloride 98 Carbon Dioxide 23 Anion Gap 22 H BUN 31 H Creatinine 2.1 H Est GFR ( Amer) 28 Est GFR (Non-Af Amer) 23 POC Glucose (mg/dL) Random Glucose 183 H Calcium 9.1 Total Bilirubin 1.2 AST 27 ALT 27 Alkaline Phosphatase 104 Total Protein 8.1 Albumin 4.1 Globulin 3.9 Albumin/Globulin Ratio 1.0 Lipase 50 Urine Color Yellow Urine Clarity [place] Urine pH 5.0 Ur Specific [place] 1.015 Urine Protein Negative Urine Glucose (UA) Normal Urine Ketones Trace Urine Blood 3+ H Urine Nitrate Negative Urine Bilirubin Negative Urine Urobilinogen Normal Ur Leukocyte Esterase Trace Urine WBC (Auto) 10 H Urine RBC (Auto) 117 H Ur Squamous Epith Cells 4 Urine Bacteria Rare Blood Type Antibody Screen 10/30/17 10/31/17 10/31/17 21:11 06:11 07:01 WBC RBC Hgb Hct MCV MCH MCHC RDW Plt Count MPV Neut % (Auto) Lymph % (Auto) [place] % (Auto) Eos % (Auto) Baso % (Auto) Neut # (Auto) Lymph # (Auto) [place] # (Auto) Eos # (Auto) Baso # (Auto) Neutrophils % (Manual) Lymphocytes % (Manual) Monocytes % (Manual) Eosinophils % (Manual) Basophils % (Manual) Platelet Estimate Hypochromasia (manual) Poikilocytosis (manual Anisocytosis (manual) PT 12.9 H INR 1.2 APTT 43 H Sodium Potassium Chloride Carbon Dioxide Anion Gap BUN Creatinine Est GFR ( Amer) Est GFR (Non-Af Amer) POC Glucose (mg/dL) 96 155 H Random Glucose Calcium Total Bilirubin AST ALT Alkaline Phosphatase Total Protein Albumin Globulin Albumin/Globulin Ratio Lipase Urine Color Urine Clarity Urine pH Ur Specific [place] Urine Protein Urine Glucose (UA) Urine Ketones Urine Blood Urine Nitrate Urine Bilirubin Urine Urobilinogen Ur Leukocyte Esterase Urine WBC (Auto) Urine RBC (Auto) Ur Squamous Epith Cells Urine Bacteria Blood Type Antibody Screen 10/31/17 10/31/17 10/31/17 07:01 07:01 07:01 WBC 11.0 H RBC 3.59 L Hgb 10.8 L Hct 31.8 L MCV 88.5 MCH 30.2 MCHC 34.1 RDW 12.8 Plt Count 286 MPV 8.5 Neut % (Auto) 84.6 H Lymph % (Auto) 8.5 L [place] % (Auto) 5.9 Eos % (Auto) 0.5 Baso % (Auto) 0.5 Neut # (Auto) 9.3 H Lymph # (Auto) 0.9 L [place] # (Auto) 0.6 Eos # (Auto) 0.1 Baso # (Auto) 0.1 Neutrophils % (Manual) 80 H Lymphocytes % (Manual) 12 L Monocytes % (Manual) 6 Eosinophils % (Manual) 1 Basophils % (Manual) 1 Platelet Estimate Normal Hypochromasia (manual) Slight Poikilocytosis (manual Slight Anisocytosis (manual) Slight PT INR APTT Sodium 140 Potassium 4.6 Chloride 102 Carbon Dioxide 24 Anion Gap 19 BUN 26 H Creatinine 1.8 H Est GFR ( Amer) 34 Est GFR (Non-Af Amer) 28 POC Glucose (mg/dL) Random Glucose 163 H Calcium 8.6 Total Bilirubin 1.1 AST 20 ALT 23 Alkaline Phosphatase 88 Total Protein 7.2 Albumin 3.6 Globulin 3.6 Albumin/Globulin Ratio 1.0 Lipase Urine Color Urine Clarity Urine pH Ur Specific [place] Urine Protein Urine Glucose (UA) Urine Ketones Urine Blood Urine Nitrate Urine Bilirubin Urine Urobilinogen Ur Leukocyte Esterase Urine WBC (Auto) Urine RBC (Auto) Ur Squamous Epith Cells Urine Bacteria Blood Type O POSITIVE Antibody Screen Negative Assessment & Plan - Assessment and Plan (Free Text) Assessment: IMP: R Renal colic Right distal ureteral calculus Azotemia Biliary tract pathology, cholelithiasis Discussed w pt, attending MD, and surgeon For cysto, stent, poss ureteroscopy full note t/f - Date & Time Date: 10/31/17 Time: 07:40
--- NOTE | 2017-10-31 09:57 | PCM.SURG1 ---
Surgeon's Initial Post Op Note - Surgeon's Notes Surgeon: Tennille Ignacio Gum Sprayer: none Type of Anesthesia: General Endo Pre-Operative Diagnosis: R renal colic. R ureteral calculus. R hydronephrosis Operative Findings: same Post-Operative Diagnosis: same Operation Performed: cysto. R ureteroscopy. laser uretero-lithotripsy. stone basketing. stent insertion. EUA Specimen/Specimens Removed: urine. stone Estimated Blood Loss: EBL {In ML}: 0 Blood Products Given: N/A Post-Op Condition: Good Date of Surgery/Procedure: 10/31/17 Time of Surgery/Procedure: 09:30
[2017-10-31] MEDS ORDERED: Clindamycin 600mg/50ml NS 600 MG/50 ML BAG IVPB ONE (10:02)
--- NOTE | 2017-10-31 10:30 | CP.PCM.PN ---
<Kevin Hermosillo - Last Filed: 10/31/17 10:19> Subjective - Date & Time of Evaluation Date of Evaluation: 10/31/17 Time of Evaluation: 07:15 - Subjective Subjective: PGY5 GI Fellow Progress Note Patient seen and examined bedside this morning. She has spoken with the surgical and urology teams and has planned interventions for both today. Admits to continued RUQ abdominal pain and some mild right flank/back discomfort. No issues overnight. 12 system ROS performed and negative except where stated. Objective - Vital Signs/Intake and Output Vital Signs (last 24 hours): Temp Pulse Resp BP Pulse Ox 98.3 F 89 20 151/72 H 96 10/31/17 07:15 10/31/17 07:15 10/31/17 07:15 10/31/17 07:15 10/31/17 07:15 - Medications Medications: Current Medications Metronidazole (Flagyl) 250 mg in 50 mls @ 100 mls/hr IVPB Q8H [facility] PRN Reason: Protocol Stop: 11/05/17 01:31 Last Admin: 10/31/17 09:37 Dose: Not Given Ciprofloxacin (Cipro 200mg/100ml D5w) 100 mls @ 67 mls/hr IVPB Q12H [facility] PRN Reason: Protocol Last Admin: 10/31/17 05:01 Dose: 67 mls/hr Lactated Ringer's (Lactated Ringer's) 1,000 mls @ 125 mls/hr IV .Q8H [facility] Last Admin: 10/31/17 05:54 Dose: 125 mls/hr Losartan Potassium (Cozaar) 25 mg PO DAILY [facility] Last Admin: 10/31/17 09:36 Dose: Not Given Morphine Sulfate (Morphine) 2 mg IVP Q4 PRN PRN Reason: Pain, severe (8-10) Last Admin: 10/31/17 04:57 Dose: 2 mg Pantoprazole Sodium (Protonix Inj) 40 mg IVP DAILY [facility] - Labs Labs: 10/31/17 07:01 10/31/17 07:01 PT 12.9 SECONDS (9.7-12.2) H 10/31/17 07:01 INR 1.2 10/31/17 07:01 APTT 43 SECONDS (21-34) H 10/31/17 07:01 - Constitutional Appears: Non-toxic, No Acute Distress - Eye Exam Eye Exam: EOMI, PERRL - ENT Exam ENT Exam: Mucous Membranes Moist - Respiratory Exam Respiratory Exam: Clear to Ausculation Bilateral. absent: Rales, Rhonchi, Wheezes - Cardiovascular Exam Cardiovascular Exam: RRR, +S1, +S2 - GI/Abdominal Exam GI & Abdominal Exam: Soft, Tenderness (RUQ), Normal Bowel Sounds. absent: Distended, Firm, Guarding, Rigid, Organomegaly - Extremities Exam Extremities Exam: Normal Inspection. absent: Pedal Edema - Neurological Exam Neurological Exam: Alert, Awake, Oriented x3 - Psychiatric Exam Psychiatric exam: Normal Affect, Normal Mood - Skin Skin Exam: Dry, Warm Assessment and Plan - Assessment and Plan (Free Text) Assessment: Patient is a 67yo female with PMHx significant for cholelithiasis, HTN and DM who presents to the ED with complaint of abdominal pain and dysuria. Dysuria began several days ago with more prominent right flank pain developing yesterday evening while at work -Acute cholecystitis -Dilated CBD on imaging - R/O choledocolithiasis -Porcelain gallbladder -Cholelithiasis -Obstructive nephrolithiasis with obstructive uropathy and RAMY Plan: -Patient to have cystoscopy this morning with Dr Ignacio -Plan for cholecystectomy today with general surgery -MRCP reviewed and negative for choledocolithiasis -Recommend outpatient follow up with GI for surveillance colonoscopy - last colonoscopy in 2007 with 2 polyps per patient <GomezLuz Marina sosarober - Last Filed: 10/31/17 11:29> Objective - Vital Signs/Intake and Output Vital Signs (last 24 hours): Temp Pulse Resp BP Pulse Ox 98.3 F 89 20 151/72 H 96 10/31/17 07:15 10/31/17 07:15 10/31/17 07:15 10/31/17 07:15 10/31/17 07:15 - Medications Medications: Current Medications Metronidazole (Flagyl) 250 mg in 50 mls @ 100 mls/hr IVPB Q8H [facility] PRN Reason: Protocol Stop: 11/05/17 01:31 Last Admin: 10/31/17 09:37 Dose: Not Given Ciprofloxacin (Cipro 200mg/100ml D5w) 100 mls @ 67 mls/hr IVPB Q12H [facility] PRN Reason: Protocol Last Admin: 10/31/17 05:01 Dose: 67 mls/hr Lactated Ringer's (Lactated Ringer's) 1,000 mls @ 125 mls/hr IV .Q8H [facility] Last Admin: 10/31/17 05:54 Dose: 125 mls/hr Losartan Potassium (Cozaar) 25 mg PO DAILY [facility] Last Admin: 10/31/17 09:36 Dose: Not Given Morphine Sulfate (Morphine) 2 mg IVP Q4 PRN PRN Reason: Pain, severe (8-10) Last Admin: 10/31/17 04:57 Dose: 2 mg Pantoprazole Sodium (Protonix Inj) 40 mg IVP DAILY [facility] - Labs Labs: 10/31/17 07:01 10/31/17 07:01 PT 12.9 SECONDS (9.7-12.2) H 10/31/17 07:01 INR 1.2 10/31/17 07:01 APTT 43 SECONDS (21-34) H 10/31/17 07:01 Attending/Attestation - Attestation I have personally seen and examined this patient.: Yes I have fully participated in the care of the patient.: Yes I have reviewed all pertinent clinical information, including history, physical exam and plan: Yes Notes (Text): 10/31/17 11:27 This is a 67 year old female with PMHx significant for cholelithiasis, HTN and DM who presents to the ED with complaints of abdominal pain and dysuria. Dysuria began several days ago with more prominent right flank pain developing yesterday evening while at work found to have obstructive uropathy. Fot cystoscopy today. Plan for CCY later today. MRCP reviewed- no CBD stone. No further GI work up right now. Thank you for letting us participate in the care of your patient -Recommend outpatient follow up with GI for surveillance colonoscopy - last colonoscopy in 2007 with 2 polyps per patient
--- NOTE | 2017-10-31 10:35 | RAD ---
HISTORY: RT. URETER CALCULI COMPARISON: CT abdomen and pelvis from 10/30/2017. FINDINGS: There is redemonstration of a 6 x 4 mm stone in the right distal ureter not changed in position compared to the CT examination from 10/30/2017. BOWEL: Normal. No obstruction. No free air. BONES: Within normal limits for the patient's age. OTHER FINDINGS: None. IMPRESSION: Stable position of 6 x 4 mm right distal ureteral stone.
[2017-10-31] MEDS ORDERED: metroNIDAZOLE IV 500 mg/100 ml 0 MG/0 ML BAG ONE (10:41)
[2017-10-31] MEDS ORDERED: Neostigmine Methylsulfate 3mg/3ml Syringe IV ONE (13:22)
--- NOTE | 2017-10-31 14:01 | PCM.SURG1 ---
Surgeon's Initial Post Op Note - Surgeon's Notes Surgeon: Dr. Araujo Strand Galvanizer: Jo Ann Rodriguez, PGY-1; Nicolasa Pre-Operative Diagnosis: Acute cholecystitis Operative Findings: See op report Post-Operative Diagnosis: Phlegmonous necrotizing cholecystitis, possible malignancy Operation Performed: Robotic subtotal cholecystectomy, lysis of adhesions, decompression of phlegmonous gallbladder Specimen/Specimens Removed: Gallbladder Estimated Blood Loss: EBL {In ML}: 200 Blood Products Given: N/A Drains Used: Dwain Post-Op Condition: Good Date of Surgery/Procedure: 10/31/17 Time of Surgery/Procedure: 14:01
[2017-10-31] MEDS: HYDROmorphone 0.5 mg/0.5 ml ISec IVP PRN ×4 (14:21→15:28)
[2017-10-31] MEDS ORDERED: Sodium Chloride 0.9% 1,000 ML IV ONE (15:30)
[2017-10-31 19:55] LABS: HEMOGLOBIN 10.8 g/dL (11.0-16.0); MEAN CELL VOLUME 88.6 fL (81.0-99.0); MEAN CORPUSCULAR HEMOGLOBIN 29.9 pg (27.0-31.0); MEAN CORPUSCULAR HGB CONC 33.7 g/dL (33.0-37.0); MEAN PLATELET VOLUME 8.1 fL (7.2-11.7); RBC 3.61 Mil/uL (3.80-5.20); RED CELL DISTRIBUTION WIDTH 12.8 % (11.5-14.5); WHITE BLOOD COUNT 12.8 K/uL (4.8-10.8)
[2017-10-31 20:18] LABS: ALB/GLOB RATIO 1.1 (1.0-2.1); ALBUMIN 3.6 g/dL (3.5-5.0); CALCIUM 8.6 mg/dl (8.6-10.4)
[2017-10-31] MEDS: Ciprofloxacin 200mg/100ml D5W 100 ML IVPB SCH (21:16)
[2017-10-31] MEDS ORDERED: Morphine 4 MG/ML VIAL IVP PRN (21:30)
[2017-11-01] MEDS: metroNIDAZOLE IV 250mg/50 ml 250 MG/50 ML BAG IVPB SCH ×3 (03:13→18:28)
--- NOTE | 2017-11-01 04:28 | OP ---
PROCEDURE DATE: 10/31/2017 PREOPERATIVE DIAGNOSES: 1. Stemg-qm-lnjegth cholecystitis with cholelithiasis. 2. Dilated common bile duct, status post normal magnetic resonance cholangiopancreatography. 3. Porcelain gallbladder. POSTOPERATIVE DIAGNOSES: 1. Yhdom-iw-qqmepdd phlegmonous necrotizing cholecystitis with cholelithiasis. 2. Extensive postinfectious phlegmonous adhesion of the right upper quadrant. 3. Gallbladder abscess with extensive pericholecystic and perihepatic collection. PROCEDURES DONE: 1. Robotic subtotal cholecystectomy. 2. Robotic extensive lysis of adhesion. 3. Robotic aspiration of the gallbladder as well as drainage of pericholecystic and perihepatic collection. SURGEON: Robbi Araujo MD RESOLUTE PROFESSIONAL: JENNIFER Muniz and Jo Ann Rodriguez, PGY-1 Resident. TYPE OF ANESTHESIA: General endotracheal tube anesthesia. ESTIMATED BLOOD LOSS: Around 200 mL. DRAIN: The 19-Croatian Dwain drain was placed. COMPLICATIONS: None. INTRAOPERATIVE FINDINGS: The patient had mamsm-vm-sakcnhv phlegmonous necrotizing cholecystis with extensive inflammation and extensive thickening of the gallbladder and the patient also had changes of porcelain gallbladder. The patient also had a gallbladder abscess as well as collections and due to extensive nature of the procedure, it took approximately 100 to 120 extra minute for the routine gallbladder procedure. Complications are none. DESCRIPTION OF PROCEDURE: On intraoperative steps, this is a 67-year-old female who was diagnosed with ygfub-ec-evrwrqa cholecystitis and cholelithiasis and the patient also had right ureteric stone and the patient underwent right ureteric stone removal just before the gallbladder operation. The patient was consented for the gallbladder procedure before going to urologic procedure and now from the cystoscopy room, the patient was brought to the robotic room and the patient was placed supine on the operating table and the abdomen was prepped and draped in the usual sterile fashion. The supraumbilical transverse incision was made after incising skin, subcutaneous tissue, and the fascia. The robotic camera port was placed, pneumo was created. Another three 8-mm port was placed in the upper abdomen and the robot was brought in. Camera arm as well as arm 1, arm 2 were docked; and the first extensive lysis of adhesion was done. The patient found to have a phlegmonous necrotizing mzbdo-rh-gsqqlnj cholecystitis, an extremely thick and edematous gallbladder that was unable to grasp. So first aspiration of the gallbladder was done and the patient found to have a gallbladder abscess and the abscess was completely drained. Now the pericholecystic fluid was also drained and the gallbladder was retracted cranially. Due to extensive nature of the edema and swelling, the gallbladder was extensively adhesed to the duodenum as well as the colon and the first enterolysis was done to identify the infundibulum as well as the Calot's triangle. An intraoperative Firefly was used and the patient had extremely dilated CBD and infundibulum was stuck to the CBD. Now, the top-down approach was done. With the use of Firefly and with proper hemostasis, the top-down approach was done. The patient was found to have extensive adhesion of the infundibulum to the common hepatic duct also and now the decision was made to do the subtotal cholecystectomy and the gallbladder was completely resected 2 cm above common bile duct and the part of the gallbladder was placed into the EndoCatch bag and now proper suction irrigation was done. The mucosa inside the gallbladder was completely cauterized. The gallbladder was approximately 2 cm thick circumferentially and extremely necrosed and edematous. Now, the 0 PDS V-Loc suture was used to close the stump in two layers and after proper closure of the stump, the 19-Croatian Dwain drain was placed. Proper hemostasis was achieved and the gallbladder was taken out through the umbilical port site and it was sent off the table for pathology. The abscess from the gallbladder aspirate was also sent for the culture and sensitivity and after that all the ports were closed in two layers, the fascia with 0 Vicryl, skin with 4-0 Monocryl, and dry sterile dressing was applied. The patient tolerated the procedure well. Counts of the instrument and gauze were correct. There was no apparent complication. The patient was extubated in the OR and sent to the Postanesthesia Care Unit in stable condition. Robbi Araujo MD
[2017-11-01] MEDS: Lactated Ringer's 1,000 ML IV SCH (05:00)
--- NOTE | 2017-11-01 06:49 | CP.PCM.PN ---
Subjective - Date & Time of Evaluation Date of Evaluation: 11/01/17 Time of Evaluation: 06:00 - Subjective Subjective: General surgery progress note for Dr. Paris Rodriguez, PGY-1 Pt S & E at bedside. Pt reports some pain with ambulation/movement. Has been OOB to void, reports lots of voiding overnight. Denies N & V, F & C. Dwain with 20 cc serosanguinous output. Objective - Vital Signs/Intake and Output Vital Signs (last 24 hours): Temp Pulse Resp BP Pulse Ox 98.0 F 86 20 133/74 90 L 10/31/17 23:07 10/31/17 23:07 10/31/17 23:07 10/31/17 23:07 10/31/17 23:07 Intake and Output: 10/31/17 11/01/17 18:59 06:59 Intake Total 1100 970 Output Total 320 20 Balance 780 950 - Medications Medications: Current Medications Docusate Sodium (Colace) 100 mg PO DAILY [facility] Acetaminophen (Ofirmev) 100 mls @ 400 mls/hr IV Q6 PRN PRN Reason: Pain, Mild (1-3) Stop: 11/01/17 14:35 Last Admin: 10/31/17 15:00 Dose: 100 mls Ciprofloxacin (Cipro 200mg/100ml D5w) 100 mls @ 67 mls/hr IVPB Q12H [facility] PRN Reason: Protocol Last Admin: 10/31/17 21:16 Dose: 67 mls/hr Metronidazole (Flagyl) 250 mg in 50 mls @ 100 mls/hr IVPB Q8H [facility] PRN Reason: Protocol Stop: 11/05/17 19:01 Last Admin: 11/01/17 03:13 Dose: 100 mls/hr Losartan Potassium (Cozaar) 25 mg PO DAILY [facility] Last Admin: 10/31/17 09:36 Dose: Not Given Ondansetron HCl (Zofran Inj) 4 mg IVP Q6H PRN PRN Reason: Nausea/Vomiting Oxycodone/Acetaminophen (Percocet 5/325 Mg Tab) 1 tab PO Q4H PRN PRN Reason: Pain, moderate (4-7) Stop: 11/04/17 06:44 Pantoprazole Sodium (Protonix Inj) 40 mg IVP DAILY [facility] - Labs Labs: 10/31/17 19:49 10/31/17 19:49 PT 12.9 SECONDS (9.7-12.2) H 10/31/17 07:01 INR 1.2 10/31/17 07:01 APTT 43 SECONDS (21-34) H 10/31/17 07:01 - Constitutional Appears: Non-toxic, No Acute Distress - Head Exam Head Exam: ATRAUMATIC, NORMAL INSPECTION, NORMOCEPHALIC - Eye Exam Eye Exam: EOMI, Normal appearance - ENT Exam ENT Exam: Mucous Membranes Moist, Normal Exam - Neck Exam Neck Exam: Full ROM, Normal Inspection - Respiratory Exam Respiratory Exam: NORMAL BREATHING PATTERN - Cardiovascular Exam Cardiovascular Exam: REGULAR RHYTHM, +S1, +S2 - GI/Abdominal Exam GI & Abdominal Exam: Soft, Tenderness (over surgical sites). absent: Distended , Firm, Guarding, Rigid, Hernia Additional comments: dressings over abdominal surgical sites x 5, clean/dry/intact, Dwain with scant serosanguinous output Assessment and Plan - Assessment and Plan (Free Text) Assessment: 67F POD#1 s/p Robotic subtotal cholecystectomy, lysis of adhesions, decompression of phlegmonous gallbladder, s/p cysto w/R ureteroscopy, laser uretero-lithrotripsy, stone basketing & stent insertion with urology Plan: D/C IVF Changed to PO pain meds Pt requested FLD Monitor drain output Maintain dressings over surgical sites Drain care PRN OOBTC Ambulate Encourage IS use Will KANDICE attending Jennifer, PGY-1
[2017-11-01] MEDS: Oxycodone/Acetaminophen 5/325 mg Tab PO PRN ×4 (06:59→20:32)
[2017-11-01] MEDS: Ciprofloxacin 200mg/100ml D5W 100 ML IVPB SCH ×2 (09:56→20:30)
[2017-11-02] MEDS: metroNIDAZOLE IV 250mg/50 ml 250 MG/50 ML BAG IVPB SCH ×3 (03:31→19:16)
[2017-11-02] MEDS: Oxycodone/Acetaminophen 5/325 mg Tab PO PRN ×4 (03:39→22:03)
[2017-11-02] MEDS: Ciprofloxacin 200mg/100ml D5W 100 ML IVPB SCH ×2 (09:03→21:29)
--- NOTE | 2017-11-02 10:16 | CP.PCM.PN ---
Subjective - Date & Time of Evaluation Date of Evaluation: 11/02/17 Time of Evaluation: 10:13 - Subjective Subjective: Surgery: Dr. Araujo Pt seen and examined. No acute overnight events. States she's feeling a lot better this morning and pain is well controlled. Tolerating liquids and admits to flatus. Pt states she's ambulating and denies N/V, F/C. Objective - Vital Signs/Intake and Output Vital Signs (last 24 hours): Temp Pulse Resp BP Pulse Ox 98.4 F 83 18 146/73 95 11/02/17 07:51 11/02/17 07:51 11/02/17 07:51 11/02/17 07:51 11/02/17 07:51 Intake and Output: 11/02/17 11/02/17 06:59 18:59 Intake Total 920 Output Total 5 Balance 915 - Medications Medications: Current Medications Docusate Sodium (Colace) 100 mg PO DAILY [facility] Last Admin: 11/02/17 09:04 Dose: 100 mg Ciprofloxacin (Cipro 200mg/100ml D5w) 100 mls @ 67 mls/hr IVPB Q12H [facility] PRN Reason: Protocol Last Admin: 11/02/17 09:03 Dose: 67 mls/hr Metronidazole (Flagyl) 250 mg in 50 mls @ 100 mls/hr IVPB Q8H [facility] PRN Reason: Protocol Stop: 11/05/17 19:01 Last Admin: 11/02/17 03:31 Dose: 100 mls/hr Losartan Potassium (Cozaar) 25 mg PO DAILY [facility] Last Admin: 11/02/17 09:03 Dose: 25 mg Ondansetron HCl (Zofran Inj) 4 mg IVP Q6H PRN PRN Reason: Nausea/Vomiting Oxycodone/Acetaminophen (Percocet 5/325 Mg Tab) 1 tab PO Q4H PRN PRN Reason: Pain, moderate (4-7) Stop: 11/04/17 06:44 Last Admin: 11/02/17 07:42 Dose: 1 tab Pantoprazole Sodium (Protonix Inj) 40 mg IVP DAILY [facility] Last Admin: 11/02/17 09:03 Dose: 40 mg - Labs Labs: 10/31/17 19:49 10/31/17 19:49 PT 12.9 SECONDS (9.7-12.2) H 10/31/17 07:01 INR 1.2 10/31/17 07:01 APTT 43 SECONDS (21-34) H 10/31/17 07:01 - Constitutional Appears: Well, No Acute Distress - Head Exam Head Exam: ATRAUMATIC, NORMOCEPHALIC - Eye Exam Eye Exam: Normal appearance - ENT Exam ENT Exam: Mucous Membranes Moist - Respiratory Exam Respiratory Exam: NORMAL BREATHING PATTERN - Cardiovascular Exam Cardiovascular Exam: RRR - GI/Abdominal Exam GI & Abdominal Exam: Soft. absent: Distended, Tenderness, Rebound - Neurological Exam Neurological Exam: Alert, Awake, Oriented x3 - Skin Skin Exam: Dry, Warm Assessment and Plan - Assessment and Plan (Free Text) Assessment: 67F s/p robotic cholecystectomy; POD#2 Plan: - advance to low fat diet - encourage ambulation - will remove ragini drain tomorrow before DC - d/w Dr. Van Munguia, PGY-3
--- NOTE | 2017-11-02 17:20 | CP.PCM.PN ---
Subjective - Date & Time of Evaluation Date of Evaluation: 10/31/17 Time of Evaluation: 17:19 - Subjective Subjective: Patient underwent surgical intervention today. Postoperatively she is doing well, stable vital signs. Patient will be monitored closely today. Continue the current supportive treatment IV fluid and will follow the patient. Objective - Vital Signs/Intake and Output Vital Signs (last 24 hours): Temp Pulse Resp BP Pulse Ox 99.1 F 85 18 147/75 99 11/02/17 15:00 11/02/17 15:00 11/02/17 15:00 11/02/17 15:00 11/02/17 15:00 Intake and Output: 11/02/17 11/02/17 06:59 18:59 Intake Total 920 650 Output Total 5 Balance 915 650 - Medications Medications: Current Medications Docusate Sodium (Colace) 100 mg PO DAILY [facility] Last Admin: 11/02/17 09:04 Dose: 100 mg Ciprofloxacin (Cipro 200mg/100ml D5w) 100 mls @ 67 mls/hr IVPB Q12H [facility] PRN Reason: Protocol Last Admin: 11/02/17 09:03 Dose: 67 mls/hr Metronidazole (Flagyl) 250 mg in 50 mls @ 100 mls/hr IVPB Q8H [facility] PRN Reason: Protocol Stop: 11/05/17 19:01 Last Admin: 11/02/17 10:44 Dose: 100 mls/hr Losartan Potassium (Cozaar) 25 mg PO DAILY [facility] Last Admin: 11/02/17 09:03 Dose: 25 mg Ondansetron HCl (Zofran Inj) 4 mg IVP Q6H PRN PRN Reason: Nausea/Vomiting Oxycodone/Acetaminophen (Percocet 5/325 Mg Tab) 1 tab PO Q4H PRN PRN Reason: Pain, moderate (4-7) Stop: 11/04/17 06:44 Last Admin: 11/02/17 13:54 Dose: 1 tab Pantoprazole Sodium (Protonix Inj) 40 mg IVP DAILY [facility] Last Admin: 11/02/17 09:03 Dose: 40 mg - Labs Labs: 10/31/17 19:49 10/31/17 19:49 PT 12.9 SECONDS (9.7-12.2) H 10/31/17 07:01 INR 1.2 10/31/17 07:01 APTT 43 SECONDS (21-34) H 10/31/17 07:01 Assessment and Plan (1) Acute cholecystitis Status: Acute (2) Acute renal failure Status: Acute (3) Kidney stone Status: Acute
--- NOTE | 2017-11-02 17:22 | CP.PCM.PN ---
Subjective - Date & Time of Evaluation Date of Evaluation: 11/01/17 Time of Evaluation: 17:20 - Subjective Subjective: Patient is sitting up comfortably Some abdominal pain noted. Only drinking liquid diet No chest pain, no shortness of breath Vital signs are stable. Chest good air entry no wheezing or rales noted irregular heart sound on postoperative abdomen Labs reviewed in Urine output is better Assessment and recommendation: 67 female diabetes hypertension admitted with acute cholecystitis, acute hydronephrosis secondary to renal colic. Status post ureteral stent, status post cholecystectomy. DVT GI prophylaxis will follow-up the patient Objective - Vital Signs/Intake and Output Vital Signs (last 24 hours): Temp Pulse Resp BP Pulse Ox 99.1 F 85 18 147/75 99 11/02/17 15:00 11/02/17 15:00 11/02/17 15:00 11/02/17 15:00 11/02/17 15:00 Intake and Output: 11/02/17 11/02/17 06:59 18:59 Intake Total 920 650 Output Total 5 Balance 915 650 - Medications Medications: Current Medications Docusate Sodium (Colace) 100 mg PO DAILY [facility] Last Admin: 11/02/17 09:04 Dose: 100 mg Ciprofloxacin (Cipro 200mg/100ml D5w) 100 mls @ 67 mls/hr IVPB Q12H [facility] PRN Reason: Protocol Last Admin: 11/02/17 09:03 Dose: 67 mls/hr Metronidazole (Flagyl) 250 mg in 50 mls @ 100 mls/hr IVPB Q8H [facility] PRN Reason: Protocol Stop: 11/05/17 19:01 Last Admin: 11/02/17 10:44 Dose: 100 mls/hr Losartan Potassium (Cozaar) 25 mg PO DAILY [facility] Last Admin: 11/02/17 09:03 Dose: 25 mg Ondansetron HCl (Zofran Inj) 4 mg IVP Q6H PRN PRN Reason: Nausea/Vomiting Oxycodone/Acetaminophen (Percocet 5/325 Mg Tab) 1 tab PO Q4H PRN PRN Reason: Pain, moderate (4-7) Stop: 11/04/17 06:44 Last Admin: 11/02/17 13:54 Dose: 1 tab Pantoprazole Sodium (Protonix Inj) 40 mg IVP DAILY [facility] Last Admin: 11/02/17 09:03 Dose: 40 mg - Labs Labs: 10/31/17 19:49 10/31/17 19:49 PT 12.9 SECONDS (9.7-12.2) H 10/31/17 07:01 INR 1.2 10/31/17 07:01 APTT 43 SECONDS (21-34) H 10/31/17 07:01 Assessment and Plan (1) Acute cholecystitis Status: Acute (2) Acute renal failure Status: Acute (3) Kidney stone Status: Acute
--- NOTE | 2017-11-02 17:22 | CP.PCM.PN ---
Subjective - Date & Time of Evaluation Date of Evaluation: 11/02/17 Time of Evaluation: 17:22 - Subjective Subjective: Patient is sitting up comfortably Some abdominal pain noted. Only drinking liquid diet No chest pain, no shortness of breath Vital signs are stable. Chest good air entry no wheezing or rales noted irregular heart sound on postoperative abdomen Labs reviewed in Urine output is better Assessment and recommendation: 67 female diabetes hypertension admitted with acute cholecystitis, acute hydronephrosis secondary to renal colic. Status post ureteral stent, status post cholecystectomy. DVT GI prophylaxis will follow-up the patient Repeat blood test today and will follow Objective - Vital Signs/Intake and Output Vital Signs (last 24 hours): Temp Pulse Resp BP Pulse Ox 99.1 F 85 18 147/75 99 11/02/17 15:00 11/02/17 15:00 11/02/17 15:00 11/02/17 15:00 11/02/17 15:00 Intake and Output: 11/02/17 11/02/17 06:59 18:59 Intake Total 920 650 Output Total 5 Balance 915 650 - Medications Medications: Current Medications Docusate Sodium (Colace) 100 mg PO DAILY [facility] Last Admin: 11/02/17 09:04 Dose: 100 mg Ciprofloxacin (Cipro 200mg/100ml D5w) 100 mls @ 67 mls/hr IVPB Q12H [facility] PRN Reason: Protocol Last Admin: 11/02/17 09:03 Dose: 67 mls/hr Metronidazole (Flagyl) 250 mg in 50 mls @ 100 mls/hr IVPB Q8H [facility] PRN Reason: Protocol Stop: 11/05/17 19:01 Last Admin: 11/02/17 10:44 Dose: 100 mls/hr Losartan Potassium (Cozaar) 25 mg PO DAILY [facility] Last Admin: 11/02/17 09:03 Dose: 25 mg Ondansetron HCl (Zofran Inj) 4 mg IVP Q6H PRN PRN Reason: Nausea/Vomiting Oxycodone/Acetaminophen (Percocet 5/325 Mg Tab) 1 tab PO Q4H PRN PRN Reason: Pain, moderate (4-7) Stop: 11/04/17 06:44 Last Admin: 11/02/17 13:54 Dose: 1 tab Pantoprazole Sodium (Protonix Inj) 40 mg IVP DAILY [facility] Last Admin: 11/02/17 09:03 Dose: 40 mg - Labs Labs: 10/31/17 19:49 10/31/17 19:49 PT 12.9 SECONDS (9.7-12.2) H 10/31/17 07:01 INR 1.2 10/31/17 07:01 APTT 43 SECONDS (21-34) H 10/31/17 07:01 Assessment and Plan (1) Acute cholecystitis Status: Acute (2) Acute renal failure Status: Acute (3) Kidney stone Status: Acute
--- NOTE | 2017-11-02 19:04 | RAD ---
PROCEDURE: Intraoperative Fluoroscopy. HISTORY: RT. URETER CALCULI FINDINGS: Fluoroscopic assistance was provided for right ureteroscopy and stent insertion. Please refer to the operative report from Dr. ALBA [place]. Total fluoroscopy time is 25.1 second.
[2017-11-02 20:08] LABS: BASO # 0.1 K/uL (0.0-0.2); BASO % 0.7 % (0.0-2.0); EOS # 0.1 K/uL (0.0-0.7); EOS % 1.2 % (0.0-4.0); HEMOGLOBIN 10.6 g/dL (11.0-16.0); LYMPH # 1.7 K/uL (1.0-4.3); LYMPH % 14.5 % (20.0-40.0); MEAN CELL VOLUME 90.1 fL (81.0-99.0); MEAN CORPUSCULAR HEMOGLOBIN 29.2 pg (27.0-31.0); MEAN CORPUSCULAR HGB CONC 32.4 g/dL (33.0-37.0); MEAN PLATELET VOLUME 8.6 fL (7.2-11.7); MONO # 0.9 K/uL (0.0-0.8); MONO % 7.5 % (0.0-10.0); NEUT # 9.2 K/uL (1.8-7.0); NEUT % 76.1 % (50.0-75.0); RBC 3.65 Mil/uL (3.80-5.20); WHITE BLOOD COUNT 12.1 K/uL (4.8-10.8)
[2017-11-02 20:29] LABS: ALBUMIN 3.5 g/dL (3.5-5.0); CALCIUM 8.7 mg/dl (8.6-10.4)
[2017-11-02] MEDS: (Novolin R) Insulin Human Regular 100 units/ml vial SC SCH (21:29)
--- NOTE | 2017-11-02 22:44 | OP ---
PROCEDURE DATE: 10/31/2017 PREOPERATIVE DIAGNOSES: Right ureteral calculus. Right hydronephrosis. Right renal colic. POSTOPERATIVE DIAGNOSES: Right ureteral calculus. Right hydronephrosis. Right renal colic. PROCEDURE: Cystoscopy. Right ureteroscopy. Laser ureteral lithotripsy. Right ureteral stone basketing. Insertion of right ureteral stent. Exam under anesthesia. Procedure was performed under fluoroscopic control as well as video endoscopic control. DESCRIPTION OF PROCEDURE: The patient was in the lithotomy position. Genitalia prepped and draped sterilely. A 22-Tajik cystoscope sheath was introduced with obturator. Urine was sent for bacteriologic examination. The urethra and bladder were inspected. FINDINGS: There was noted to be mild cystitis. There was no bladder tumor, There were small yellow crystals noted within the bladder. The ureteral orifices were in normal position and shape. There was no bladder diverticulum. There was mild bladder trabeculation. Environmental Permitting Specialist fluoroscopy of the abdomen as well as plain film of the abdomen revealed multiple calcifications within the pelvis. A 0.035-inch guidewire was inserted, moved the cystoscope into the bladder and into the right ureteral orifice. The guidewire was advanced under fluoroscopic control. The guidewire was noted to be adjacent to the calcification within the pelvis below the pelvic brim. A second guidewire was inserted up to level of kidney. The ureteroscope was advanced over the working wire, into the distal ureter. The ureteroscope, at first, could not be advanced more proximally. The ureteral dilation was performed with a 10-Tajik double-lumen ureteral catheter passed over the guidewire. Thereafter, the ureteroscope was advanced without difficulty in an atraumatic fashion. The stone was encountered at the level of the sacrum. Stone was noted to be smooth, firm, brown in color. Laser ureteral lithotripsy was performed with a holmium laser in the setting of 65 micron fiber. The stone was treated in the dusting phase. There was excellent dusting as well as fragmentation accomplished. The remaining fragments were removed using the 2.8 Tajik 4-wire basket, under direct ureteroscopic control. Iodinated contrast was instilled via the ureteroscope. Moderate hydronephrosis was demonstrated. The ureteroscope was removed in an atraumatic fashion. There were no residual fragments identified. A 6-Tajik Multi-Length stent was inserted over the remaining guidewire. Proper stent position was confirmed with fluoroscopy and endoscopy. The bladder was then drained. Cystoscope and sheath removed. Exam under anesthesia was performed. There was no abnormal pelvic mass fixation or induration. The patient was returned to the supine position. The patient was transferred to the general surgery suite in stable condition. Mel Ignacio MD CC: MD Dr. Van Jha
--- NOTE | 2017-11-03 00:06 | CON ---
DATE: 10/31/2017 10/31/2017OLOGY CONSULTATION urology consultation is requested by Dr. Raul Breen. Urology consultation is filled by Dr. Mel Ignacio. REASON FOR CONSULTATION Renal colic. HISTORY OF PRESENT ILLNESS: The patient is a 67-year-old female with right-sided abdominal pain and flank pain. The patient reports a several day history of pain. The pain involved the right abdomen, pain involving right flank pain. The patient's pain also radiated to the right lower quadrant. There was no hematuria. The patient reports mild dysuria. No history of previous urolithiasis. The patient voids with good urinary stream and good control. Mrs. Paulson is, otherwise, well. 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 The pain has been persistent. The patient has required parenteral analgesics. During this hospitalization, the patient underwent CT scan. She was also found to have cholelithiasis. The patient is being evaluated for possible cholecystitis as well although she has not yet seen the assembler surgical garment. The remainder of the chart is reviewed. Further details of history are obtained from the patient. PHYSICAL EXAMINATION: GENERAL: The patient is well-developed, well-nourished female, appearing younger than her stated age. VITAL SIGNS: Stable. See attached. The patient is afebrile ABDOMEN: Soft, nondistended. Abdomen is protuberant. There is moderate marked right upper quadrant tenderness. No mass or organomegaly. BACK: Mild right CVA tenderness. I have reviewed the CT scan. There was an approximately 6 mm distal right ureteral calculus with associated right hydroureteronephrosis. Laboratory data reviewed as well, see attached reports. IMPRESSION: Right ureteral calculus. Right hydronephrosis. The patient has two possible reasons for her clinical findings. She may have acute cholecystitis. Additionally, she does have right hydronephrosis secondary to an obstructed ureteral stone. PLAN/RECOMMENDATIONS: The patient has been on antibiotic therapy. She reports that she is still having pain. The pain involves both the anterior abdomen as well as the posterior flank. I will discuss further with the patient as well as with the attending surgeon as well as with the attending/admitting physician, regarding options of therapy. Possible cystoscopy, stent insertion, ureteroscopy. Possible cholecystectomy. Further therapy to follow according to the patient's wishes, the patient's clinical course, as well as the discussion with the other physicians. Thank you for recommending the patient to urology consultation. Mel Ignacio MD
[2017-11-03 00:39] VITALS: RESP 20
[2017-11-03] MEDS: metroNIDAZOLE IV 250mg/50 ml 250 MG/50 ML BAG IVPB SCH (03:36)
[2017-11-03 07:55] LABS: HEMOGLOBIN 10.4 g/dL (11.0-16.0); MEAN CELL VOLUME 88.7 fL (81.0-99.0); MEAN CORPUSCULAR HGB CONC 33.9 g/dL (33.0-37.0); RBC 3.47 Mil/uL (3.80-5.20); RED CELL DISTRIBUTION WIDTH 12.9 % (11.5-14.5)
[2017-11-03 08:14] LABS: CALCIUM 8.7 mg/dl (8.6-10.4)
[2017-11-03] MEDS: Oxycodone/Acetaminophen 5/325 mg Tab PO PRN ×2 (08:15→12:16)
[2017-11-03] MEDS: (Novolin R) Insulin Human Regular 100 units/ml vial SC SCH ×2 (08:30→12:17)
--- NOTE | 2017-11-03 11:19 | PCM.URO ---
Urology Progress Note - Objective Lab Results Last 24 Hours: Laboratory Results - last 24 hr 11/02/17 11/02/17 11/02/17 11:04 16:43 20:01 WBC 12.1 H RBC 3.65 L Hgb 10.6 L Hct 32.9 L MCV 90.1 MCH 29.2 MCHC 32.4 L RDW 13.0 Plt Count 353 MPV 8.6 Neut % (Auto) 76.1 H Lymph % (Auto) 14.5 L [place] % (Auto) 7.5 Eos % (Auto) 1.2 Baso % (Auto) 0.7 Neut # (Auto) 9.2 H Lymph # (Auto) 1.7 [place] # (Auto) 0.9 H Eos # (Auto) 0.1 Baso # (Auto) 0.1 Sodium Potassium Chloride Carbon Dioxide Anion Gap BUN Creatinine Est GFR ( Amer) Est GFR (Non-Af Amer) POC Glucose (mg/dL) 211 H 221 H Random Glucose Calcium Magnesium Total Bilirubin AST ALT Alkaline Phosphatase Total Protein Albumin Globulin Albumin/Globulin Ratio 11/02/17 11/02/17 11/03/17 20:01 21:05 06:10 WBC RBC Hgb Hct MCV MCH MCHC RDW Plt Count MPV Neut % (Auto) Lymph % (Auto) [place] % (Auto) Eos % (Auto) Baso % (Auto) Neut # (Auto) Lymph # (Auto) [place] # (Auto) Eos # (Auto) Baso # (Auto) Sodium 138 Potassium 4.1 Chloride 98 Carbon Dioxide 28 Anion Gap 16 BUN 20 H Creatinine 1.6 H Est GFR ( Amer) 39 Est GFR (Non-Af Amer) 32 POC Glucose (mg/dL) 248 H 156 H Random Glucose 231 H Calcium 8.7 Magnesium 1.7 Total Bilirubin 0.8 AST 26 ALT 41 Alkaline Phosphatase 86 Total Protein 7.1 Albumin 3.5 Globulin 3.6 Albumin/Globulin Ratio 1.0 11/03/17 11/03/17 07:48 07:48 WBC 10.0 RBC 3.47 L Hgb 10.4 L Hct 30.8 L MCV 88.7 MCH 30.0 MCHC 33.9 RDW 12.9 Plt Count 331 MPV 8.0 Neut % (Auto) Lymph % (Auto) [place] % (Auto) Eos % (Auto) Baso % (Auto) Neut # (Auto) Lymph # (Auto) [place] # (Auto) Eos # (Auto) Baso # (Auto) Sodium 141 Potassium 4.3 Chloride 100 Carbon Dioxide 30 Anion Gap 15 BUN 20 H Creatinine 1.3 H Est GFR ( Amer) 49 Est GFR (Non-Af Amer) 41 POC Glucose (mg/dL) Random Glucose 161 H Calcium 8.7 Magnesium Total Bilirubin AST ALT Alkaline Phosphatase Total Protein Albumin Globulin Albumin/Globulin Ratio Intake & Output: Intake & Output 11/02/17 11/03/17 11/03/17 18:59 06:59 18:59 Intake Total 650 400 Output Total 10 Balance 650 390 Intake: Intake, IV Amount 150 50 Right Forearm 150 50 Oral 500 350 Output: Drainage 10 Right Upper Abdomen 10 Other: # Voids Urine, Voided 2 2 # Bowel Movements 0 0 Vital Signs: Vital Signs - 24 hr 11/02/17 11/02/17 11/03/17 15:00 23:20 07:37 Temperature 99.1 F 98.9 F 98 F Pulse Rate 85 83 72 Respiratory 18 20 20 Rate Blood Pressure 147/75 124/71 153/79 H O2 Sat by Pulse 99 93 L 94 L Oximetry - Date & Time of Note Date: 11/03/17 Time: 11:25
--- NOTE | 2017-11-03 15:09 | CP.PCM.PN ---
Subjective - Date & Time of Evaluation Date of Evaluation: 11/03/17 Time of Evaluation: 15:07 - Subjective Subjective: PT SEEN BY DR. MARCUS WHO CLEARED PT FOR D/C HOME TODAY. SHE WILL BE ABLE TO GO AFTER HE SPEAKS WITH HER AND FAMILY ONCE ARRIVES. RX GIVEN FOR PERCOCET PRN PAIN AND CIPRO AND FLAGYL X7 DAYS FOR THE + GALLBLADDER CX. PT TO FU WITH DR. MONTEJO IN THE OFFICE WITHIN 7 DAYS. NO FURTHER ORDERS. Objective - Vital Signs/Intake and Output Vital Signs (last 24 hours): Temp Pulse Resp BP Pulse Ox 98 F 72 20 153/79 H 94 L 11/03/17 07:37 11/03/17 07:37 11/03/17 07:37 11/03/17 07:37 11/03/17 07:37 Intake and Output: 11/03/17 11/03/17 06:59 18:59 Intake Total 400 Output Total 10 Balance 390 - Medications Medications: Current Medications Ciprofloxacin (Cipro) 250 mg PO BID [facility] PRN Reason: Protocol Last Admin: 11/03/17 09:34 Dose: 250 mg Docusate Sodium (Colace) 100 mg PO DAILY [facility] Last Admin: 11/03/17 09:34 Dose: 100 mg Glipizide (Glucotrol) 5 mg PO DAILY [facility] Last Admin: 11/03/17 09:34 Dose: 5 mg Insulin Human Regular (Novolin R) 0 unit SC ACHS [facility] PRN Reason: Protocol Last Admin: 11/03/17 12:17 Dose: Not Given Losartan Potassium (Cozaar) 25 mg PO DAILY [facility] Last Admin: 11/03/17 09:34 Dose: 25 mg Metronidazole (Flagyl) 250 mg PO Q8H [facility] PRN Reason: Protocol Last Admin: 11/03/17 09:04 Dose: 250 mg Ondansetron HCl (Zofran Inj) 4 mg IVP Q6H PRN PRN Reason: Nausea/Vomiting Oxycodone/Acetaminophen (Percocet 5/325 Mg Tab) 1 tab PO Q4H PRN PRN Reason: Pain, moderate (4-7) Stop: 11/04/17 06:44 Last Admin: 11/03/17 12:16 Dose: 1 tab - Labs Labs: 11/03/17 07:48 11/03/17 07:48 PT 12.9 SECONDS (9.7-12.2) H 10/31/17 07:01 INR 1.2 10/31/17 07:01 APTT 43 SECONDS (21-34) H 10/31/17 07:01
[2017-11-03 15:27] VITALS: BP 164/80; PULSE 95; TEMP 97.3; O2SAT 95
--- NOTE | 2017-11-03 15:43 | CP.PCM.PN ---
Subjective - Date & Time of Evaluation Date of Evaluation: 11/03/17 Time of Evaluation: 06:50 - Subjective Subjective: Patient seen and examined at bedside this AM. No adverse events overnight. patient tolerating low fat diet without nausea or vomiting. passing gas, ambulating Objective - Vital Signs/Intake and Output Vital Signs (last 24 hours): Temp Pulse Resp BP Pulse Ox 97.3 F L 95 H 20 164/80 H 95 11/03/17 15:22 11/03/17 15:22 11/03/17 15:22 11/03/17 15:22 11/03/17 15:22 Intake and Output: 11/03/17 11/03/17 06:59 18:59 Intake Total 400 Output Total 10 Balance 390 - Medications Medications: Current Medications Ciprofloxacin (Cipro) 250 mg PO BID [facility] PRN Reason: Protocol Last Admin: 11/03/17 09:34 Dose: 250 mg Docusate Sodium (Colace) 100 mg PO DAILY [facility] Last Admin: 11/03/17 09:34 Dose: 100 mg Glipizide (Glucotrol) 5 mg PO DAILY [facility] Last Admin: 11/03/17 09:34 Dose: 5 mg Insulin Human Regular (Novolin R) 0 unit SC ACHS [facility] PRN Reason: Protocol Last Admin: 11/03/17 12:17 Dose: Not Given Losartan Potassium (Cozaar) 25 mg PO DAILY [facility] Last Admin: 11/03/17 09:34 Dose: 25 mg Metronidazole (Flagyl) 250 mg PO Q8H [facility] PRN Reason: Protocol Last Admin: 11/03/17 09:04 Dose: 250 mg Ondansetron HCl (Zofran Inj) 4 mg IVP Q6H PRN PRN Reason: Nausea/Vomiting Oxycodone/Acetaminophen (Percocet 5/325 Mg Tab) 1 tab PO Q4H PRN PRN Reason: Pain, moderate (4-7) Stop: 11/04/17 06:44 Last Admin: 11/03/17 12:16 Dose: 1 tab - Labs Labs: 11/03/17 07:48 11/03/17 07:48 PT 12.9 SECONDS (9.7-12.2) H 10/31/17 07:01 INR 1.2 10/31/17 07:01 APTT 43 SECONDS (21-34) H 10/31/17 07:01 - Constitutional Appears: Well, Non-toxic, No Acute Distress - Head Exam Head Exam: ATRAUMATIC, NORMOCEPHALIC - Eye Exam Eye Exam: Normal appearance. absent: Conjunctival injection, Scleral icterus - ENT Exam ENT Exam: Mucous Membranes Moist, Normal Oropharynx - Respiratory Exam Respiratory Exam: NORMAL BREATHING PATTERN. absent: Accessory Muscle Use, Respiratory Distress - GI/Abdominal Exam GI & Abdominal Exam: Soft, Tenderness (mild RUQ tenderness). absent: Distended Additional comments: dressign C/D/I. Dwain drain in place in the RUQ with minimal serosanguinous output - Neurological Exam Neurological Exam: Alert, Awake, Oriented x3 - Psychiatric Exam Psychiatric exam: Normal Affect, Normal Mood - Skin Skin Exam: Dry, Normal Color, Warm Assessment and Plan - Assessment and Plan (Free Text) Assessment: 67F POD#3 s/p robotic subtotal colectomy with cholecystostomy tube placement Plan: -Patient is clear for discharge with the Dwain drain in place from a surgical standpoint. patient should follow up with Dr. Araujo in his office 10- 14days after discharge -Patient was notified of the character of the gallbladder intra-operatively and the concern for possible neoplasm. Patient agreed to follow up with Dr Araujo in his office for final pathology results. Patient handled the information well, all questions answered -patient shouldn't lift >10 pounds, may shower, may remove bandaids on Friday but leave steri-strips intact until they fall off on their own, take stool softeners with pain medication, call Dr. Araujo's office orcome to ER for fever >100.4 refractory to tylenol, severe pain, nausea or vomiting, drainage from the incisions, or any other concerns Discussed with Dr. Van Reyez, PGY2
== END 2017-11-03 16:21 | disposition home or self-care (01) | DRG 418 ==
LOC: C.ER 12:02 → C.9E 16:44 → C.5S 19:09
PROVIDERS: ADMIT Internal Medicine; ATTEND Internal Medicine
PROC: 0TC68ZZ Extirpation of Matter from Right Ureter, Via Natural or Artificial Opening Endoscopic (ICD-10-PCS; 2017-10-31)
PROC: 0F9440Z Drainage of Gallbladder with Drainage Device, Percutaneous Endoscopic Approach (ICD-10-PCS; 2017-10-31)
PROC: 0T768DZ Dilation of Right Ureter with Intraluminal Device, Via Natural or Artificial Opening Endoscopic (ICD-10-PCS; 2017-10-31)
PROC: 0FT44ZZ Resection of Gallbladder, Percutaneous Endoscopic Approach (ICD-10-PCS; principal; 2017-10-31 09:00)
PROC: 0FN44ZZ Release Gallbladder, Percutaneous Endoscopic Approach (ICD-10-PCS; 2017-10-31 09:00)
DX: K80.12 Calculus of gallbladder with acute and chronic cholecystitis without obstruction (principal); N13.2 Hydronephrosis with renal and ureteral calculous obstruction; N17.9 Acute kidney failure, unspecified; N30.90 Cystitis, unspecified without hematuria; K82.8 Other specified diseases of gallbladder; K83.8 Other specified diseases of biliary tract; E11.9 Type 2 diabetes mellitus without complications; I10 Essential (primary) hypertension; E78.5 Hyperlipidemia, unspecified; Z88.0 Allergy status to penicillin; Z79.4 Long term (current) use of insulin

== ENCOUNTER 2017-11-28 06:52 | Day surgery (SDC) | payer MEDICARE ==
[2017-11-28 07:12] VITALS: BMI 34.3
[2017-11-28 07:53] VITALS: RESP 18
[2017-11-28] MEDS ORDERED: Midazolam 2 MG/2 ML VIAL ONE (08:38)
[2017-11-28] MEDS ORDERED: Propofol 10 mg/ml Inj (20 ML) ONE (08:40)
[2017-11-28] MEDS ORDERED: Lidocaine 2% Jelly (Uro-Jet) ONE (08:40)
[2017-11-28] MEDS: Ciprofloxacin 400mg/200ml D5W 400 MG/200 ML BAG IVPB ONE (08:41)
[2017-11-28 09:49] VITALS: BP 140/71; PULSE 81; TEMP 97.3; O2SAT 97
--- NOTE | 2017-11-30 12:34 | CARD ---
APPROVED REPORT EKG Measurement Heart [id number] <Conclusion> Normal sinus rhythm Normal ECG
--- NOTE | 2017-12-01 02:15 | OP ---
PROCEDURE DATE: 11/28/2017 PREOPERATIVE DIAGNOSIS Urolithiasis. POSTOPERATIVE DIAGNOSIS: Urolithiasis. PROCEDURE: Cystoscopy. Removal of right ureteral stent. Removal of bladder stones. SURGEON: Dr. Mel Ignacio. PROCEDURE: The patient was placed in lithotomy position. The genitalia prepped and draped in a sterile fashion. Lidocaine jelly were instilled previously. A 22-Sinhala cystoscope sheath was introduced with obturator. Urine was sent for bacteriologic examination. The urethra and bladder were inspected with a 30 degree lens. The stent was grasped with rigid grasping forceps and removed. The stent was removed intact. Multiple stones fragments within the bladder as well as adherent to the stent were removed as well and sent for chemical analysis. The bladder was reinspected. The bladder was then drained. Cystoscope and sheath were removed. The patient tolerated procedure without complication. Mel Ignacio MD
== END 2017-11-28 09:49 | disposition home or self-care (01) ==
LOC: C.SDS 06:52
PROVIDERS: ATTEND Urology
DX: N20.9 Urinary calculus, unspecified (principal)
CPT/HCPCS: 52310; 82355; 82365; 82948; 87086; 87181; 93005; J0744